=== PATIENT | female | born 1970 | race Caucasian/White ===

== ENCOUNTER → 2020-07-30 18:03 | Outpatient (CLI) | payer OTHER, SELFPAY ==
--- NOTE | ~2020-07-30 | XR_ITS ---
EXAMINATION:XR_[id number]_CR DATE: 07/30/2020 19:00 INDICATION: Neck pain TECHNIQUE: AP, lateral, lateral swimmers and odontoid views of the cervical spine are provided. COMPARISON: 06/19/2009 FINDINGS: There is 1 mm retrolisthesis of C4 on C5 and C5 on C6. The odontoid is intact. No fracture is identified. Vertebral body heights and disk spaces are normal. Prevertebral soft tissues are meghann l. Small degenerative osteophytes project from the anterior endplates of multiple vertebral bodies. M ild multilevel facet and uncovertebral joint osteoarthritis persists without significant change. IMPRESSION: 1. Mild cervical spondylosis without acute findings or significant interval change. Reviewed, dictated and finalized at location A. TRICAL ENGINEERING MANAGER IMPRESSION: 1. Mild cervical spondylosis without acute findings or significant interval justyn nge.
== END ==
PROVIDERS: Visit Provider Nurse Practitioner
DX: M47.892 Other spondylosis, cervical region (principal)
CPT/HCPCS: 72040

== ENCOUNTER → 2022-04-09 17:22 | Outpatient (CLI) | payer OTHER, SELFPAY ==
--- NOTE | ~2022-04-09 | MM_ITS ---
EXAMINATION: MM screening ceci BI w naomi HISTORY: Screening TECHNIQUE: Craniocaudal and mediolateral oblique 3-D tomosynthesis images were obtained and synthetic 2-D images were generated. CAD analysis was submitted and interpreted. COMPARISON: . 08/19/2016 BREAST PARENCHYMAL COMPOSITION: The breasts are heterogeneously dense, which may obscure small masses FINDINGS: There is no evidence of suspicious mass, calcification, or architectural distortion to sugg est malignancy in either breast. There has been no suspicious interval change. IMPRESSION: 1. No mammographic evidence of malignancy. 2. Recommend routine screening mammography in one year. BI-RADS Category 1: Negative Reviewed, dictated and finalized at location A.
== END ==
PROVIDERS: PCP Nurse Practitioner Obstetrics & Gynecology; Visit Provider Nurse Practitioner Obstetrics & Gynecology
DX: Z12.31 Encounter for screening mammogram for malignant neoplasm of breast (principal)
CPT/HCPCS: 77063; 77067

== ENCOUNTER 2022-07-14 09:58 | Outpatient (CLI) | payer OTHER, SELFPAY ==
[2022-07-14 13:07] LABS: Kit Draw Collected
== END 2022-07-14 09:59 | disposition home or self-care (01) ==
LOC: ANHGOSHLAB 10:00
PROVIDERS: PCP Family Medicine; Visit Provider Nurse Practitioner Family
DX: Z00.00 Encounter for general adult medical examination without abnormal findings (principal); E78.5 Hyperlipidemia, unspecified; E11.9 Type 2 diabetes mellitus without complications; F41.9 Anxiety disorder, unspecified; E55.9 Vitamin D deficiency, unspecified
CPT/HCPCS: 36415

== ENCOUNTER 2023-08-17 08:09 | Outpatient (CLI) | payer OTHER, SELFPAY ==
[2023-08-17 19:09] LABS: Basophils Absolute Auto 0.1 K/mm3 (0.0-0.1); Eosinophils Absolute Auto 0.2 K/mm3 (0-0.3); Eosinophils Percent Auto 3.1 % (0-4.4); Hematocrit 42.3 % (37.0-47.0); Hemoglobin 13.7 g/dL (12.0-15.0); Immature Granulocyte Absolute 0.05 K/mm3 (0.00-0.031); Immature Granulocyte Percent A 0.9 % (0-0.5); Lymphocytes Absolute Auto 3.07 K/mm3 (0.9-3.2); Lymphocytes Percent Auto 52.6 % (18.3-44.2); Mean Corpuscular HGB Conc 32.4 g/dl (32-36); Mean Corpuscular Hemoglobin 31.5 pg (26-34); Mean Corpuscular Volume 97.2 fl (80-100); Mean Platelet Volume 9.7 fl (7.4-10.4); Monocytes Absolute Auto 0.3 K/mm3 (0.1-0.6); Monocytes Percent Auto 5.8 % (2.6-8.5); Neutrophils Absolute Auto 2.1 K/mm3 (1.3-6.7); Neutrophils Percent Auto 36.6 % (45.5-73.1); Platelet Count Result 257 k/mm3 (150-375); Red Blood Count 4.35 M/mm3 (4.2-5.4); Red Cell Distribution Width 11.5 % (11.5-14.5); White Blood Count 5.8 K/mm3 (4.5-10.0)
[2023-08-17 19:17] LABS: Alanine Aminotransferase 31 U/L (6-35); Albumin Level 4.1 g/dL (3.5-5.1); Alkaline Phosphatase 113 U/L (38-126); Anion Gap 8 mmol/L (8-16); Aspartate Amino Transferase 30 U/L (14-36); Bilirubin,Total 0.6 mg/dL (0.2-1.3); Blood Urea Nitrogen 13 mg/dL (7-17); Calcium 9.1 mg/dL (8.4-10.2); Carbon Dioxide 26 mmol/L (22-30); Chloride 103 mmol/L (98-107); Cholesterol 322 mg/dL (0-200); Estimated Glomerular Filt Rate > 60; Glucose 264 mg/dL (65-110); HDL Direct 39 mg/dL; Potassium 4.2 mmol/L (3.4-5.0); Sodium 137 mmol/L (137-145); Triglycerides 308 mg/dL (<150)
[2023-08-17 19:28] LABS: LDL Cholesterol Direct 213 mg/dL
[2023-08-17 19:38] LABS: Creatinine Urine 148.5 mg/dL
[2023-08-17 19:40] LABS: MALB Creatinine Ratio 27.1 mg/g (0-30); Microalbumin Urine Random 40.3 mg/L (0-16.7)
[2023-08-17 20:14] LABS: Hemoglobin A1C 9.3 % (<5.7)
[2023-08-20 13:22] LABS: Vitamin D 1,25 (OH)2 Total 36 pg/mL (18-72); Vitamin D2 1,25 (OH)2 <8 pg/mL; Vitamin D3 1,25 (OH)2 36 pg/mL
== END 2023-08-17 08:10 | disposition home or self-care (01) ==
LOC: ANHGOSHLAB 08:11
PROVIDERS: PCP Family Medicine; Visit Provider Nurse Practitioner Family
DX: E11.9 Type 2 diabetes mellitus without complications (principal); I10 Essential (primary) hypertension; E55.9 Vitamin D deficiency, unspecified; Z00.00 Encounter for general adult medical examination without abnormal findings
CPT/HCPCS: 36415; 80053; 80061; 82043; 82652; 83036; 84443; 85025

== ENCOUNTER 2024-08-07 15:27 | Outpatient (CLI) | payer OTHER, SELFPAY ==
--- NOTE | ~2024-08-07 | MM_ITS ---
EXAMINATION: MM screening ceci BI w naomi HISTORY: Screening TECHNIQUE: Craniocaudal and mediolateral oblique 3-D tomosynthesis images were obtained and synthetic 2-D images were generated. CAD analysis was submitted and interpreted. COMPARISON: Comparison to multiple prior studies sequentially, with oldest reviewed study dated 07/23. BREAST PARENCHYMAL COMPOSITION: Not dense: There are scattered areas of fibroglandular density. FINDINGS: There is no evidence of suspicious mass, calcification, or architectural distortion to sugg est malignancy in either breast. There has been no suspicious interval change. IMPRESSION: 1. No mammographic evidence of malignancy. 2. Recommend routine screening mammography in one year. BI-RADS Category 1: Negative Reviewed, dictated and finalized at location B. BACKER
== END 2024-08-07 15:28 | disposition home or self-care (01) ==
LOC: MICIMG 15:28
PROVIDERS: PCP Family Medicine; Visit Provider Student in an Organized Health Care Education/Training Program
DX: Z12.31 Encounter for screening mammogram for malignant neoplasm of breast (principal)
CPT/HCPCS: 77063; 77067

== ENCOUNTER 2024-11-05 20:57 | Observation (INO) | payer OTHER, SELFPAY ==
--- NOTE | ~2024-11-05 | CT_ITS ---
Non-contrast CT scan of the Abdomen and Pelvis Clinical indication: UTI Technique: 2.5 mm axial scans were obtained through the abdomen and pelvis without intravenous or or al contrast. Dose reduction technique was used on this scan by utilizing automated exposure control a nd iterative reconstruction technique. The dose-length product (DLP) was 898.82 mGy-cm. Findings: Images through the lung bases reveal no abnormalities. 3 mm nonobstructing left renal stone present. No other stones identified in either side. No hydroneph rosis. Minimal areas of perinephric stranding present bilaterally, nonspecific. The liver, spleen, pancreas, gallbladder, and adrenals appear normal. There are atherosclerotic calci fications of the aorta. . There is no evidence of bowel obstruction. Images through the pelvis were performed. There is no evidence of ascites or lymphadenopathy. Urinary bladder unremarkable. No pelvic mass seen. No ascites. Impression: 3 mm nonobstructing left renal stone. Minimal bilateral perinephric stranding, nonspecific. Reviewed, dictated and finalized at [facility]. Impression: 3 mm nonobstructing left renal stone. Minimal bilateral perinephric stranding, nonspecific.
[2024-11-05 20:58] VITALS: BP 150/82; PULSE 78; RESP 18; TEMP 36.4; O2SAT 100
--- OUTSIDE RECORDS SUMMARY | 2024-11-05 20:59 | XMS_ITS | Clinical Summary ---
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 Gender Identity Not on file Sexual Orientation Not on file Plan of Treatment Health Maintenance Due Date Last Done Comments Hepatitis C Virus (HCV) Screening 1968 Mammogram 1968 TdaP Immunization 1968 Hepatitis B Immunization (1 of 3 - 19+ 3-dose series) 1987 Pap Smear 1989 Cervical Cancer Screening (CCS) 1998 HPV/Cotest 1998 Colonoscopy 2013 Colorectal Cancer Screening 2013 Cologuard 2018 Immunochemical Fecal Occult Blood 2018 Pneumococcal Immunization (5 0+ years) (1 of 1 - PCV) 2018 Zoster Immunization (1 of 2) 2018 Influenza Immunization (#1) 2024 05/26/2021 SARS-COV-2 Immunization ( - season) 2024 07/07/2021, 11/01/2020, 10/03/2020 Respiratory Syncytial Virus (RSV) Immunization (Adult) (1 - 1-dose 75+ series) 2043 Meningococcal Immunization (ACWY) Aged Out No longer eligible b ased on patient's age to complete this topic Pneumococcal Immunization Combined Aged Out No longer eligible b ased on patient's age to complete this topic Rotavirus Immunization Aged Out No lo nger eligible based on patient's age to complete this topic
--- OUTSIDE RECORDS SUMMARY | 2024-11-05 20:59 | XMS_ITS | Data Portability ---
Author Organization [facility] [place] Address [address] [place] [address] Assessment Encounter Date Assessment Date Assessment LastModified by Organization Details LastModified Time 01/09/2022 01/09/2022 Annual gynecological exam performed. Patient will come back in a year unless there are new symptoms. [email or web address] Not available 01/09/2022 11:14:43 Plan of Treatment Reminders Order Date Submit Date Provider Last Modified By Organization Details Last Modified Time Details Appointments None recorded. Lab None recorded. Referral gastroenter ologist referral - Referring this patient for a Screening Colonoscopy Please contact this patient to schedule an appointment Attached to this referral are the patients demographic s and most recent office visit notes.If you have any questions or require further information , please contact me at [phone].Thank you,Ruby, Referral's 2021 [facility], [address], [id number], [place], [address], 3 05:01:34 Procedures None recorded. Surgeries None recorded. Imaging MAMMO, screening, bilateral 2021 [facility], [address], [place], [address], 2 09:58:50 Medication Orders clobetasol 0.05 % topical cream 2021 [facility] [address] In [facility], [address] , [place], [address], 2 11:23:34 Patient TargetsNo targets recorded. Patient InstructionsNo instructions recorded. 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 Referral for Screening for malignant neoplasm of colon Referring this patient for a Screening ColonoscopyPlease contact this patient to schedule an appointmentAttached to this referral are the patients demographics and most recent office visit notes.If you have any questions or require further information, please contact me at [phone].Thank you,Ruby Referral's Referring Physician: Jennifer Velásquez, RELIEF OPERATOR, Encounter Date: 01/09/2022 Results Created Date Observation Date Name Description Value Unit Range Abnormal Flag Note LastModifiedBy Organization Detail LastModifiedTime 01/12/20 22 01/11/2022 IMAGE GUIDE D PAP AND HPV REGAR DLESS image guided Pap, HPV regardless of Pap result SEE RESULT S BELOW CASE REPOR T: Cytol ogy Gynec ologi kvng Repor t Case: [id number] Aut[address] savage carrasco Provi colleen: Nathan Reid Colle cted: 01/11 0807 PHYSICIST CRYOGENICS Order ing Locat ion: [place] [facility] Recei ryan: 01/12 0105 First Scree n: Lisbet Riojas, CT Rescr een: Ana Maria Elam ret, CT Speci men: Scree roni Pap - Image d, Cervi x STATE MENT OF ADEQU ACY: Satis facto ry for evalu ation Trans forma tion zone compo nent prese nt FINAL DIAGN OSIS: Negat breanna for Intra epith elial Linda leslie or Peter ugalde (NIL) . Elect aung hung gisella d by Ana Maria Elam ret, CT on 2021 at 4:23 PM ----- ----- ----- ----- ----- ----- ----- ----- ----- ----- ----- ----- ----- ----- ----- ----- ----- ---- HPV RESUL TS: HPV mRNA E6/E7 : No HPV mRNA Detec song NOTE: This high risk HPV mRNA assay detec ts fourt een high- risk HPV types (16, 18, 31, 33, 35, 39, 45, 51, 52, 56, 58, 59, 66, 68) witho ut diffe renti ation . COMME NT: Note: This speci men was revie wed by a Cytot echno logis t and/o r Patho logis t (as indic ated in this repor t) after evalu ation using the Thinp rep Imagi ng Syste m. CLINI KVNG INFOR MATIO N: Menst rual Statu s: LMP (if appli cable ): Clini kvng Histo ry/Pr eviou s Pap: Type of Neopl audrey (if appli cable ): Signi fican t Clini kvng Findi ngs: Other Histo ry: Hormo emelyn (if appli cable ): PAP EDUCA VANNESSA L NOTE: The Pap Test is a scree roni test with an inher ent false negat breanna rate. Liqui d-bas ed sampl ing may decre ase, but will not elimi anthony, false negat breanna resul ts. A negat breanna resul t does not precl ude the prese nce and/o r devel opmen t of disea se, since the prese nce of abnor mal cells in the sampl e depen ds on the locat ion of the lesio n and sampl ing techn ique. Donato nued regul ar scree roni is the best metho d of cance r preve ntion . If repor song cytol ogic findi ng do not corre late with physi kvng and/o r histo rical findi ngs, furth er inves tigat ion is recom canelo d, as clini kyle warra nted. Not Available [facility]) [address], [place], [address], 01/15/2022 17:25:49 04/12/20 22 04/09/2022 MAMMO , scree roni, bilat eral No observ ation record ed. [facility] [address], [place], [address], 04/16/2022 13:57:33 Result Notes None recorded. Procedures Surgical History Date Name Laterality Status Provider Name and Address Organization Details Recorded Time Date of Last Pap Smear completed [facility] 01/09/2022 11:16:39 7 section completed [facility] 01/09/2022 12:03:23 3 section completed [facility] 01/09/2022 12:03:12 2 section completed [facility] 01/09/2022 12:03:06 Imaging Results Imaging Date Name Status LastModified by Organiz ation Details LastModified Time 04/09/2022 MAMMO, screening, bilateral completed [facility] [address], [place], [address], 04/16/2022 13:57:33 Procedure Notes None recorded. Medical Equipment None Reported. Allergies No known drug allergies Medications Name Sig Start Date Stop Date Status Note LastModified by Organization Details LastModified Time atorvastati n 40 mg tablet TAKE 1 TABLET BY MOUTH DAILY active Not Available Not Available No t Available clobetasol 0.05 % topical cream APPLY A THIN LAYER TO THE AFFECTED AREA(S) TOPICALLY 2 TIMES PER DAY FOR 7 DAYS NEEDED active Not Available Not Available No t Available metformin 1,000 mg tablet TAKE 1 TABLET BY MOUTH TWICE A DAY active Not Available Not Available No t Available methylpredn isolone 4 mg tablets in a dose pack TAKE 6 TABLETS ON DAY 1 DIRECTED ON PACKAGE AND DECREASE BY 1 TAB EACH DAY FOR A TOTAL OF 6 DAYS 01/09 completed Not Available Not Available Not Available lisinopril 2.5 mg tablet TAKE 1 TABLET BY MOUTH EVERY DAY active Not Available Not Available No t Available escitalopra m 10 mg tablet TAKE 2 TABLETS BY MOUTH DAILY active Not Available Not Available No t Available cyclobenzap rine 5 mg tablet TAKE 1 TABLET BY MOUTH 3 TIMES DAILY NEEDED FOR MUSCLE SPASM active Not Available Not Available No t Available Januvia 50 mg tablet TAKE 1 TABLET BY MOUTH DAILY active Not Available Not Available No t Available Vitals Date Recorded Body height Body mass index (BMI) Body weight Provider Name and Address Organization Details Last Updated DateTime 01/09/2022 165.1 cm 35.8 kg/m2 31442.36 g Carolyn Dozier [facility] 01/09/2022 11:16:04 Date Recorded Systolic blood pressure Diastolic blood pressure Provider Name and Address Organization Details Last Updated DateTime 01/09/2022 122 mm[Hg] 80 mm[Hg] Jennifer Velásquez, [facility]- [address], [place], [address], [facility] 01/09/2022 11:27:37 Social History Question Answer Notes LastModified by Organizat ion Details LastModified Time Tobacco Smoking Status Never Smoker Carolyn Dozier [facility], [facility] 01/09/2022 12:02:35 What Is Your Level Of Alcohol Consumption? Occasional [email or web address] Information not available 01/09/2022 Are You Blind Or Do You Have Difficulty Seeing? No [email or web address] Information n ot available 01/09/2022 What Is Your Level Of Caffeine Consumption? Heavy [email or web address] Information not available 01/09/2022 In The 14 Days Before Symptom Onset, Have You Had Close Contact With A Laboratory-confirm ed COVID-19 While That Case Was Ill? No [email or web address] Information n ot available 01/09/2022 In The 14 Days Before Symptom Onset, Have You Had Close Contact With A Person Who Is Under Investigation For COVID-19 While That Person Was Ill? No [email or web address] Information not available 01/09/2022 Have You Been To An Area Known To Be High Risk For COVID-19? No [email or web address] Information not available 01/09/2022 Are You Deaf Or Do You Have Serious Difficulty Hearing? No Information not available 01/09/2022 What Type Of Diet Are You Following? DIABETIC lyzdptes43 Information n ot available 01/09/2022 Have You Ever Been Counseled For Unhealthy Alcohol Use? No [email or web address] Information not available 01/09/2022 Do You Use Your Seat Belt Or Car Seat Routinely? Yes [email or web address] Information not available 01/09/2022 Do You Have Smoke And Carbon Monoxide Detectors In Your Home? Yes [email or web address] Information not available 01/09/2022 Do You Feel Stressed (tense, Restless, Nervous, Or Anxious, Or Unable To Sleep At Night)? [id number] [email or web address] Information not available 01/09/2022 Do You Use Any Illicit Or Recreational Drugs? No Information not available 01/09/2022 Do You Use Sunscreen Routinely? Yes [email or web address] Information not available 01/09/2022 Has Tobacco Cessation Counseling Been Provided? No lvqvejhp32 Information not available 01/09/2022 Do You Or Have You Ever Used Any Other Forms Of Tobacco Or Nicotine? No grrhdldo24 Information not available 01/09/2022 Sex: Unknown Functional Status Question Answer Note LastModified by Organizat ion Details LastModified Time Do you have difficulty walking or climbing stairs? No [email or web address] Information not available 01/09/2022 Are you able to walk? YESWOREST [email or web address] Information not available 01/09/2022 Are you able to care for yourself? Yes [email or web address] Information not available 01/09/2022 Do you have difficulty dressing or bathing? No [email or web address] Information not available 01/09/2022 What is your exercise level? Occasional ircvauds91 Information not available 01/09/2022 Mental Status None recorded. Family History Relationship Description Onset Age of this Age Resolved Age Notes LastModified by Organization Details LastModified Time Father Heart disease [email or web address] Not available 01/09 11:52:56 Father Diabetes mellitus crztbrra52 Not available 01/09 11:53:53 Father Hypercholest erolemia [email or web address] Not available 01/09 12:01:11 Father Hypertensive disorder [email or web address] Not available 01/09 12:01:59 Paternal Grandfather Heart disease [email or web address] Not available 01/09 11:52:56 Paternal Grandfather Hypercholest erolemia [email or web address] Not available 01/09 12:01:11 Paternal Grandfather Hypertensive disorder [email or web address] Not available 01/09 12:01:59 Paternal Aunt Heart disease [email or web address] Not available 01/09 11:52:56 Paternal Aunt Diabetes mellitus uepdogsy21 Not available 01/09 11:53:53 Paternal Aunt Hypercholest erolemia Not available 01/09 12:01:11 Paternal Aunt Hypertensive disorder [email or web address] Not available 01/09 12:01:59 Paternal Uncle Heart disease [email or web address] Not available 01/09 11:52:56 Paternal Uncle Diabetes mellitus [email or web address] Not available 01/09 11:53:53 Paternal Uncle Hypercholest erolemia [email or web address] Not available 01/09 12:01:11 Paternal Uncle Hypertensive disorder [email or web address] Not available 01/09 12:01:59 Mother Diabetes mellitus [email or web address] Not available 01/09 11:53:53 Maternal Grandmother Diabetes mellitus nxedmoxh14 Not available 01/09 11:53:53 Sister Diabetes mellitus [email or web address] Not available 01/09 11:53:53 Sister Hypertensive disorder [email or web address] Not available 01/09 12:01:59 Maternal Aunt Hypercholest erolemia [email or web address] Not available 01/09 12:01:11 Maternal Aunt Hypertensive disorder [email or web address] Not available 01/09 12:01:59 Maternal Uncle Hypercholest erolemia [email or web address] Not available 01/09 12:01:11 Maternal Uncle Hypertensive disorder [email or web address] Not available 01/09 12:01:59 Medical History Condition Response Allergies (Food, seasonal, environmental ) N Other Y Drug/Latex Allergies/Reactions N Blood Transfusion N Breast Cancer N Dermatologic Disorders N Lung Disease N Defects or Inherited Disease N Breast Problem N Gestational Diabetes N Hematologic disorders N Anesthesia Complications N History of STI N Deep Vein Thrombosis N Polycystic ovary syndrome N Anxiety Disorder N Autoimmune disease N Arthritis N Polyps N Infertility N Acid Reflux (GERD) N History of abnormal pap N Cancer N Varicosities N Stroke N Neurologic/Epilepsy N Endometriosis N High Cholesterol Y Fibromyalgia N Headaches N Kidney Disease N Heart Problems N Thyroid Problems N Kidney or Bladder Problems N GI Problems N Eating Disorder N Anemia N Art (IVF or FET) N Psychiatric Illness N Ovarian Cancer N Diabetes Y Pulmonary (TB, Asthma) N Hepatitis/Liver Disease N No Past Medical History N Eczema N Urinary Tract Infection N Abuse/Domestic Violence N Asthma N Trauma/Violence N Depression/ depression N Heart Disease Y Pre-Eclampsia Y Hypertension Y Osteoporosis N Thrombophilias N Gynecological History Statement/Question Response If Post Menopausal, Age at Menopause 49 Abnormal Pap N Date of Last Mammogram Date of LMP 08/22/2018 STIs/STDs N Date of DEXA bone scan Date of Last Pap Smear 01/09/2022 Current Control Method Menopause LMP Approximate Obstetrics History GPAL:G 3 P 0 2 0 4 Type Value Multiple Births 1 Premature 2 Living 4 Total 3 Past Encounters Encounter ID Performer Location Encounter Start Date Encounter Closed Date Diagnosis/Indication Diagnosis SNOMED-CT Code Diagnosis ICD10 Code Diagnosis Note [id number] Jennifer Velásquez [facility] [address] [address] 01/09/2022 10:44:59 01/09/2022 11:28:53 Gynecologic examination 71538406 Z01.419 Take Calcium with Vitamin D 12-1500mg daily. Do monthly self breast exams. It is advised to get annual flu shot in the fall and she could obtain at [facility] or [facility] care clinic. If you haven't received the Tdap vaccine in the last 10 years you should obtain one as well. Have mammogram yearly, bone density every 2-3 years and colonoscop y every 5-10 years depending on findings and history. Engage in daily exercise of low impact aerobic exercise 45-60 minutes 4-5 times weekly. Avoid tobacco and illicit drugs as well as using moderation with alcohol intake less than 1-2 8 oz beverages daily. This lifestyle behavior pattern will lead to less health conditions and longer life span. If BMI greater than 25 weight watchers or dietary consult advised. Questions have been answered. Patient appears to understand instructio ns, but if you have any further questions call or respond to this email Pap/hpv STD Screen Genetic Screen Colon Screen Dexa Screen Routine Labs Screening mammography 24 257908 Z12.31 Screening for malignant neoplasm of colon [id number] Z12.11 Contact de rmatitis caused by urushiol from [facility] [id number] L25.5 F/U if sx's persist Health Concerns Section Related Observation LastModified by Organization Detai ls LastModified Time None Recorded Concern Status LastModified by Organization Details LastModified Time None Recorded Advance Directives Directive None Recorded Payers Encounter Date Sequence Insurance Name Policy Number Policy Parry Covered Member ID Parry Member ID Guarantor Name 01/09/2022 1 [employer] [id number] Arabella Agrawal [id number] Arabella Keithent Notes Date Note Type Note Provider Name and Address Organization Details Recorded Time 01/09/2022 text/html Annual Weight Tester Post-MenopausalRe ported bypatient.Menopau rivka Symptoms:no menopausal symptoms; normal vaginal lubrication Vaginal Bleeding:history of menopause having occurred; no history of post menopausal bleeding Urinary Symptoms:no hematuria; no incontinence; no nocturia; no urinary frequency Vulva:no genital lesion; no vulvar atrophy Vagina:normal vaginal discharge; no vaginal atrophy Breast:no breast lump; no nipple discharge; no breast pain Sexual Complaints:no sexual complaints Psychological Symptoms:no depression; no anxiety Preventive Measures:encourag e regular mammograms starting age 40; encourage self breast examination; encourage regular exercise; encourage no tobacco use; needs to schedule mammogram; needs to schedule colonoscopy NIALL Rooney- [address], [place], [address], [facility] 01/09/2022 11:27:43 OBGyn Episode Ob Episode Information Episode Created Date Number of Fetuses Patient Bloodtype Patient rh Status Prepregnancy Weight lbs Domestic Partner Domestic Partner Phone Father Name Supervisor Shuttle Preparation Status 01/10/20 22 2 CLOSED Fetus Data First Name Last Name Admitted to NICU Weight (g) Sex Living Outcome Pediatric Complications Fetus ID Race Codes Race Delivery Type 737.087 M Prematur e 76098 Primary 595.112 704 M Prematur e 36883 Primary Jamir Calculation Initial Jamir Date Initial Exam Date Initial Exam Provider Initial Ultrasound Date Last Menstrual Period Date Ultra Sound Weeks Gestation 0 Eighteen To Twenty Week Jamir Update Ultra Sound Date Fundal Height At Umbil Quickening Date Ultra Sound Latest Weeks Gestation Final Jamir Confirmed By Final Jamir Confirmed Date Final Jamir Date Ultra Sound Latest Days Gestation 0 0 Menstrual History Last Menstrual Date Menses Monthly On Bcp Conception Prior Menses Frequency Hcg Plus Date Menarche Onset Age Delivery Information Delivery Date Delivery Type Labor Anesthesia Weeks Gestation Incision Type Labor Labor Length Hrs Delivered By Post Complications Tubal Sterilization Discharge Date Comments 2 24 true preeclam p ty Discharge Information Feeding Method Contraceptive Method Maternal HG B and HCT Levels Ob Episode Information Episode Created Date Number of Fetuses Patient Bloodtype Patient rh Status Prepregnancy Weight lbs Domestic Partner Domestic Partner Phone Father Name Supervisor Shuttle Preparation Status 01/10/20 22 1 CLOSED Fetus Data First Name Last Name Admitted to NICU Weight (g) Sex Living Outcome Pediatric Complications Fetus ID Race Codes Race Delivery Type 2806.37 3704 F Prematur e 55757 Repeat Jamir Calculation Initial Jamir Date Initial Exam Date Initial Exam Provider Initial Ultrasound Date Last Menstrual Period Date Ultra Sound Weeks Gestation 0 Eighteen To Twenty Week Jamir Update Ultra Sound Date Fundal Height At Umbil Quickening Date Ultra Sound Latest Weeks Gestation Final Jamir Confirmed By Final Jamir Confirmed Date Final Jamir Date Ultra Sound Latest Days Gestation 0 0 Menstrual History Last Menstrual Date Menses Monthly On Bcp Conception Prior Menses Frequency Hcg Plus Date Menarche Onset Age Delivery Information Delivery Date Delivery Type Labor Anesthesia Weeks Gestation Incision Type Labor Labor Length Hrs Delivered By Post Complications Tubal Sterilization Discharge Date Comments 7 36 true Discharge Information Feeding Method Contraceptive Method Maternal HG B and HCT Levels Ob Episode Information Episode Created Date Number of Fetuses Patient Bloodtype Patient rh Status Prepregnancy Weight lbs Domestic Partner Domestic Partner Phone Father Name Supervisor Shuttle Preparation Status 01/10/20 22 1 CLOSED Fetus Data First Name Last Name Admitted to NICU Weight (g) Sex Living Outcome Pediatric Complications Fetus ID Race Codes Race Delivery Type 2551.45 5 F Prematur [place] [address]8650 Repeat Jamir Calculation Initial Jamir Date Initial Exam Date Initial Exam Provider Initial Ultrasound Date Last Menstrual Period Date Ultra Sound Weeks Gestation 0 Eighteen To Twenty Week Jamir Update Ultra Sound Date Fundal Height At Umbil Quickening Date Ultra Sound Latest Weeks Gestation Final Jamir Confirmed By Final Jamir Confirmed Date Final Jamir Date Ultra Sound Latest Days Gestation 0 0 Menstrual History Last Menstrual Date Menses Monthly On Bcp Conception Prior Menses Frequency Hcg Plus Date Menarche Onset Age Delivery Information Delivery Date Delivery Type Labor Anesthesia Weeks Gestation Incision Type Labor Labor Length Hrs Delivered By Post Complications Tubal Sterilization Discharge Date Comments 3 36 true Discharge Information Feeding Method Contraceptive Method Maternal HG B and HCT Levels
--- OUTSIDE RECORDS SUMMARY | 2024-11-05 20:59 | XMS_ITS | Referral Summary ---
Author Organization [facility] Address [address] [place] [address] Care Team Providers Care Stock Layer Name Role Phone Unavailable Primary Care Provider Unavailabl e Source Comments [facility],non-owned Affiliates and Associated Physician Practices is amultiple site organization consisting of ambulatory clinics and hospital sitesin [place], [place], [place] and [place]. This disclosure is being madepursuant to the Care Everywhere program and may not contain all information available regarding this patient. Last updated 18.[employer] Social History Tobacco Use Types Packs/Day Years Used Date Smoking Tobacco: Never Assessed Sex and Gender Information Value Date Recorded Sex Assigned at Not on file Gender Identity Not on file Sexual Orientation Not on file Plan of Treatment Not on file
--- OUTSIDE RECORDS SUMMARY | 2024-11-05 20:59 | XMS_ITS | Clinical Summary ---
Author Organization [facility] [employer] Address [address] [place] [address] Care Team Providers Care Leather Seasoner Name Role Phone Unavailable Primary Care Provider Unavailabl e Source Comments [facility] [employer],non-owned Affiliates and Associated Physician Practices is amultiple site organization consisting of ambulatory clinics and hospital sitesin [place] and [place]. This disclosure is being madepursuant to the Care Everywhere program and may not contain all information available regarding this patient. Last updated 18.[facility] [employer] Social History Tobacco Use Types Packs/Day Years Used Date Smoking Tobacco: Never Assessed Sex and Gender Information Value Date Recorded Sex Assigned at Not on file Gender Identity Not on file Sexual Orientation Not on file Plan of Treatment Health Maintenance Due Date Last Done Comments COLOGUARD (AGES 45-75) - COL ON CA SCREENING 1968 COLON MONITORING 1968 COLONOSCOPY - COLON CA SCREENING 1968 CT COLONOGRAPHY - COLON CA SCREENING 1968 Colorectal Cancer Screening 1968 FIT - COLON CA SCREENING 1968 FLEX SIG - COLON CA SCREENING 1968 LIPID TESTING 1968 MAMMOGRAM 1968 PAP SMEAR 1968 HIV SCREENING 1983 HEPATITIS C SCREENING 05/12/1986 DTAP/TDAP/TD VACCINES (1 - Tdap) 1987 HEPATITIS B VACCINE (1 of 3 - 19+ 3-dose series) 1987 PNEUMOCOCCAL VACCINE 50+ (1 of 1 - PCV) 2018 ZOSTER VACCINE (1 of 2) 2018 COVID-19 VACCINE ( - 2023-2 5 season) 2024 INFLUENZA VACCINE (#1) 2024 DEPRESSION SCREENING 08/22/2024 HIB VACCINE Aged Out No longer eligi ble based on patient's age to complete this topic HPV VACCINE Aged Out No longer eligi ble based on patient's age to complete this topic MENINGOCOCCAL (Group B) VACC INE SHARED DECISION-MAKING Aged Out No longer eligibl e based on patient's age to complete this topic MENINGOCOCCAL GROUPS A/C/Y/W VACCINE Aged Out No longer eligible b ased on patient's age to complete this topic PNEUMOCOCCAL VACCINE Aged Out No long er eligible based on patient's age to complete this topic
--- OUTSIDE RECORDS SUMMARY | 2024-11-05 20:59 | XMS_ITS | Patient Health Summary ---
Author Organization [facility] Address [address] [place] [address] Care Team Providers Care Intellectual Property Lawyer Name Role Phone Unavailable Primary Care Provider Unavailabl e Note from [facility],non-owned Affiliates and Associated Physician Practices is amultiple site organization consisting of ambulatory clinics and hospital sitesin [place], [place], [place] and [place]. This disclosure is being madepursuant to the Care Everywhere program and may not contain all information available regarding this patient. Last updated 18.[facility] [employer] Social History Tobacco Use Types Packs/Day Years Used Date Smoking Tobacco: Never Assessed Sex and Gender Information Value Date Recorded Sex Assigned at Not on file Gender Identity Not on file Sexual Orientation Not on file Procedures * GROSS + MICRO EXAM(Performed 02/28/1997) Results * GROSS + MICRO EXAM (02/28/1997 3:53 PM CDT) Result CASE NUMBER [id number] Comment: ORDERING PHYSICIAN ANALY FERNANDEZ SPECIMEN TYPE Placenta Date 03/01/1997 Physician Ronnie Gross Description The placenta is a received in a single container and weighs 570 grams with a single placenta with a single umbilical cord that measures 19 x 15 x up to 2 cm in diameter. The cord measures 16 cm long x 1 cm in diameter and is attached 5.5 cm from the margin of the placenta. The membranes are translucent and slightly opaque in certain areas and attach at the margin of the placenta. The surface has a glistening bluish-wade color with a few small hard yellow nodules under the surface. The largest measures 0.6 x 1.0 cm. There is a blood-filled hematoma at the base of the cord that measures approximately 2.5 x 3 cm. The maternal surface is a soft deep pinkish- wade color with a small amount of adherent clotted blood. On serial sectioning, no areas of fibrosis or infarction are seen. There are a few areas that are a paler pink in color that consists of approximately 10% of the maternal surface. Sections are as follows cassette A, membranes and cord cassettes B and C, surface and placenta cassette D and E, maternal surface and placenta. CC/lmj Microscopic Exam Sections of the placenta show mature villi with occasional intervillous thrombi. The cord has 3 vessels. The membranes are unremarkable. Diagnosis I. Placenta A. Mature placenta, weight 570 grams. B. 3 vessel cord. *Snomed Code 1 B01451 - [id number] Language Teacher bk Pathologist Ludwin Jean M.D. Snomed. 03/04/1997 1542 <1> MISCELLANEOUS SAMPLES / Unknown 02/28/1997 3:53 PM CDT 02/28/1997 3:53 PM CDT Historical Provider LAB - PATHOLOGY/C YTOLOGY ORDERABLES
[2024-11-05 21:04] LABS: Glucose Point of Care 351 mg/dl (65-105)
[2024-11-05 21:43] LABS: Basophils Percent Auto 0.4 % (0.2-1.2); Eosinophils Absolute Auto 0.1 K/mm3 (0-0.3); Eosinophils Percent Auto 1.3 % (0-4.4); Hematocrit 40.7 % (37.0-47.0); Hemoglobin 14.4 g/dL (12.0-15.0); Immature Granulocyte Absolute 0.03 K/mm3 (0.00-0.031); Immature Granulocyte Percent A 0.4 % (0-0.5); Lymphocytes Absolute Auto 3.37 K/mm3 (0.9-3.2); Lymphocytes Percent Auto 47.9 % (18.3-44.2); Mean Corpuscular HGB Conc 35.4 g/dl (32-36); Mean Corpuscular Hemoglobin 32.4 pg (26-34); Mean Corpuscular Volume 91.7 fl (80-100); Mean Platelet Volume 9.4 fl (7.4-10.4); Monocytes Absolute Auto 0.3 K/mm3 (0.1-0.6); Monocytes Percent Auto 4.7 % (2.6-8.5); Neutrophils Absolute Auto 3.2 K/mm3 (1.3-6.7); Neutrophils Percent Auto 45.3 % (45.5-73.1); Platelet Count Result 275 k/mm3 (150-375); Red Blood Count 4.44 M/mm3 (4.2-5.4); Red Cell Distribution Width 11.7 % (11.5-14.5)
[2024-11-05 21:50] LABS: BEDSIDEPREGUCG Negative (Negative)
[2024-11-05 21:54] LABS: Alanine Aminotransferase 32 U/L (6-35); Albumin Level 4.6 g/dL (3.5-5.1); Alkaline Phosphatase 162 U/L (38-126); Anion Gap 12 mmol/L (4-12); Aspartate Amino Transferase 27 U/L (14-36); Bilirubin,Total 0.6 mg/dL (0.2-1.3); Blood Urea Nitrogen 17 mg/dL (7-17); Calcium 9.3 mg/dL (8.4-10.2); Carbon Dioxide 25 mmol/L (22-30); Chloride 96 mmol/L (98-107); Estimated Glomerular Filt Rate > 60; Glucose 372 mg/dL (65-110); Magnesium 1.6 mg/dL (1.6-2.3); Phosphorus 4.1 mg/dL (2.5-4.5); Potassium 3.9 mmol/L (3.4-5.0); Sodium 133 mmol/L (137-145)
[2024-11-05 21:59] LABS: Beta-Hydroxybutyrate/Acetoacetate 0.36 mmol/L (0.02-0.27)
[2024-11-05 22:08] LABS: Add Urine Microscopic? YES; Appearance Urine Turbid (Clear); Bacteria Urine 4+ /hpf; Bilirubin Urine Negative (Negative); Blood Urine Trace (Negative); Color Urine Yellow (Yellow); Glucose Urine UA 3+ mg/dL (Negative); Ketones Urine 1+ mg/dL (Negative); Leukocyte Esterase Ur 1+ LEU/UL (Negative); Need Manual Microscopic Reviewed; Nitrate Urine Positive (Negative); Non Pathogenic Casts 0-2; Protein Urine Negative (Negative); Specific Grav Ur 1.038 (1.001-1.035); Squamous Epithelial Cell Urine Moderate /hpf (Few); Urobilinogen Urine 0.2 mg/dL (<2.0); WBC Urine >100 /hpf (0-3); pH Urine 5.5 (5.0-9.0)
[2024-11-06] VITALS (8 sets, daily range): BP systolic 122–146; BP diastolic 60–86; PULSE 64–83; RESP 14–20; TEMP 36.5–36.9; O2SAT 97–100
--- OUTSIDE RECORDS SUMMARY | 2024-11-06 02:33 | XMS_ITS | Referral Summary ---
Author Organization [facility] Address [address] [place] [address] Care Team Providers Care Counter Top Maker Name Role Phone Unavailable Primary Care Provider Unavailabl e Source Comments [facility],non-owned Affiliates and Associated Physician Practices is amultiple site organization consisting of ambulatory clinics and hospital sitesin [place], [place], [place] and [place]. This disclosure is being madepursuant to the Care Everywhere program and may not contain all information available regarding this patient. Last updated 18.[facility] [employer] Social History Tobacco Use Types Packs/Day Years Used Date Smoking Tobacco: Never Assessed Sex and Gender Information Value Date Recorded Sex Assigned at Not on file Gender Identity Not on file Sexual Orientation Not on file Plan of Treatment Not on file
--- OUTSIDE RECORDS SUMMARY | 2024-11-06 02:33 | XMS_ITS | Clinical Summary ---
Author Organization [facility] [employer] Address [address] [place] [address] Care Team Providers Care Volleyball Player Name Role Phone Unavailable Primary Care Provider Unavailabl e Source Comments [facility] [employer],non-owned Affiliates and Associated Physician Practices is amultiple site organization consisting of ambulatory clinics and hospital sitesin [place], [place] and [place]. This disclosure is being madepursuant to the Care Everywhere program and may not contain all information available regarding this patient. Last updated 18.[facility] [employer] Social History Tobacco Use Types Packs/Day Years [...]
--- OUTSIDE RECORDS SUMMARY | 2024-11-06 02:33 | XMS_ITS | Patient Health Summary ---
Author Organization [facility] Address [address] [place] [address] Care Team Providers Care Dance Coach Name Role Phone Unavailable Primary Care Provider Unavailabl e Note from [facility],non-owned Affiliates and Associated Physician Practices is amultiple site organization consisting of ambulatory clinics and hospital sitesin [place], [place], [place] and [place]. This disclosure is being madepursuant to the Care Everywhere program and may not contain all information available regarding this patient. Last updated 18.[facility] [employer] Social History Tobacco Use Types Packs/Day Years [...] B. 3 vessel cord. *Snomed Code 1 H22780 - [id number] Crop Roller bk Pathologist Ludwin Jean M.D. Snomed. 03/04/1997 1542 <1> MISCELLANEOUS SAMPLES / Unknown 02/28/1997 3:53 PM CDT 02/28/1997 3:53 PM CDT Historical Provider LAB - PATHOLOGY/C YTOLOGY ORDERABLES
--- OUTSIDE RECORDS SUMMARY | 2024-11-06 02:33 | XMS_ITS | Clinical Summary ---
Author Organization [facility] Address [address] [place] [address] Care Team Providers Care Manager Plant Name Role Phone Unavailable Primary Care Provider Unavailabl e Immunizations Immunization Administration Dates Next Due Covid-19, Mrna, Lnp-s, PF, 5 0 mcg/0.25 mL dose (Moderna) 07/07/2021 Social History Tobacco Use Types Packs/Day Years Used Date Smoking Tobacco: Never Assessed Comments Unknown Sex and Gender Information Value Date Recorded Sex Assigned at Not on file Legal Sex Female 3:05 PM RECORD LIBRARIAN Gender Identity Not on file Sexual Orientation [...]
[2024-11-06] MEDS: SODIUM CHLORIDE 0.9% IV 1,000 ML 999 ML IV CONT ×2 (02:47→04:55)
--- NOTE | 2024-11-06 03:17 | ED.GENADULT ---
HPI - General Adult General Chief complaint: Recheck/Abnormal Lab/Rx Stated complaint: high BS, yeast infection and UTI Time Seen by Provider: 11/06/24 01:52 History of Present Illness HPI narrative: Patient 54-year-old female who presents emergency department chief complaint of hyperglycemia and UTI. Patient was sent from a local urgent care for possible DKA the patient has prior history of [id number] diabetes and blood sugars have been running elevated as the patient has been noncompliant with her medications the patient reports that she has had significant dysuria Related Data Allergies Allergy/AdvReac Type Severity Reaction Status Date / Time promethazine (From Phenergan) Allergy Difficulty Verified 02/24/24 07:33 Breathing Review of Systems Review of Systems: A 10 system review of systems was completed on the patient and is negative except for what is stated in the HPI. Nursing and ancillary documentation was reviewed. [facility] Past Medical History Medical History Hypertension Anxiety Other and unspecified hyperlipidemia Diabetes mellitus Surgical History Surgical History History of x3 - 1991, 1992, 1996 Family History Family History Father Family history of elevated blood lipids Cerebrovascular accident Family history of heart disease in male family member before age 55 Mother Family history of elevated blood lipids Other Diabetes mellitus Family history of cardiovascular disease Social History Social History Social History: Caffeine-daily Smoking status: Never smoker Alcohol intake: current Alcohol use details: occasionally Substance use: never Substance use type: does not use Do You Feel Safe in your Home?: Yes Lack of Transportation: No Lack of Food: Never True Current Housing: I Have Housing Concerned About Future Housing: No Difficulty Paying Gas/Electric Bills: No Difficulty Paying for Meds: No Currently Unemployed: No Education: Master's Degree or Higher Difficulty w/ Childcare or Family Care: No Living arrangements: with family Additional living arrangements comments: Occupation/Education: occupation Gender identity (if verbalized by the patient): Female Sexual Orientation (if Verbalized by the Patient): Straight or Heterosexual Exam Narrative: GENERAL: Well-appearing, well-nourished, and in no acute distress. HEAD: Normocephalic, atraumatic. EYES: PERRLA and EOMI. ENT: Nares clear, no rhinorrhea or epistaxis. Mucous membranes moist. NECK: Supple. CHEST: Clear to auscultation. No respiratory distress. HEART: Regular rate and rhythm. No murmur heard. Normal peripheral pulses. ABDOMEN: Soft, nontender, nondistended, normal active bowel sounds. EXTREMITIES: Normal range of motion. No edema. SKIN: Warm, dry, no rash. NEURO: No focal deficits. Alert and oriented x3. PSYCH: Normal mood and affect. Course Vital Signs Vital signs: Vital Signs Temperature 36.4 C 11/05/24 20:58 Pulse Rate 78 11/05/24 20:58 Respiratory Rate 18 11/05/24 20:58 Blood Pressure 150/82 H 11/05/24 20:58 Pulse Oximetry 100 11/05/24 20:58 Oxygen Delivery Room Air 11/05/24 20:58 Temperature 36.4 C 11/05/24 20:58 Pulse Rate 66 11/06/24 04:58 Respiratory Rate 18 11/06/24 04:58 Blood Pressure 141/77 H 11/06/24 04:58 Pulse Oximetry 99 11/06/24 04:58 Oxygen Delivery Room Air 11/05/24 20:58 Medical Decision Making Vital Signs Vital Signs: Vital Signs Temperature 36.4 C 11/05/24 20:58 Pulse Rate 78 11/05/24 20:58 Respiratory Rate 18 11/05/24 20:58 Blood Pressure 150/82 H 11/05/24 20:58 Pulse Oximetry 100 11/05/24 20:58 Oxygen Delivery Room Air 11/05/24 20:58 Temperature 36.4 C 11/05/24 20:58 Pulse Rate 66 11/06/24 04:58 Respiratory Rate 18 11/06/24 04:58 Blood Pressure 141/77 H 11/06/24 04:58 Pulse Oximetry 99 11/06/24 04:58 Oxygen Delivery Room Air 11/05/24 20:58 Lab Data 11/05/24 21:29 11/05/24 21:29 Labs: Lab Results 11/05/24 11/05/24 11/05/24 Range/Units 21:01 21:29 21:35 WBC 7.0 (4.5-10.0) K/mm3 RBC 4.44 (4.2-5.4) M/mm3 Hgb 14.4 (12.0-15.0) g/dL Hct 40.7 (37.0-47.0) % MCV 91.7 (80-100) fl MCH 32.4 (26-34) pg MCHC 35.4 (32-36) g/dl RDW 11.7 (11.5-14.5) % Plt Count 275 (150-375) k/mm3 MPV 9.4 (7.4-10.4) fl Immature Gran % (Auto) 0.4 (0-0.5) % Neut % (Auto) 45.3 L (45.5-73.1) % Lymph % (Auto) 47.9 H (18.3-44.2) % [place] % (Auto) 4.7 (2.6-8.5) % Eos % (Auto) 1.3 (0-4.4) % Baso % (Auto) 0.4 (0.2-1.2) % Lymph # (Auto) 3.37 H (0.9-3.2) K/mm3 [place] # (Auto) 0.3 (0.1-0.6) K/mm3 Eos # (Auto) 0.1 (0-0.3) K/mm3 Baso # (Auto) 0.0 (0.0-0.1) K/mm3 Abs Immat Gran (auto) 0.03 (0.00-0.031) K/mm3 Absolute Neuts (auto) 3.2 (1.3-6.7) K/mm3 Absolute Nucleated RBC 0.000 (0.0-0.012) K/mm3 Nucleated RBC % 0.0 (0.0-0.2) % Sodium 133 L (137-145) mmol/L Potassium 3.9 (3.4-5.0) mmol/L Chloride 96 L (98-107) mmol/L Carbon Dioxide 25 (22-30) mmol/L Anion Gap 12 (4-12) mmol/L BUN 17 (7-17) mg/dL Creatinine 0.75 (0.7-1.0) mg/dL Estim Creat Clear Calc Not Reportable Estimated GFR > 60 (59 - ) Glucose 372 H (65-110) mg/dL POC Capillary Glucose 351 H (65-105) mg/dl Calcium 9.3 (8.4-10.2) mg/dL Phosphorus 4.1 (2.5-4.5) mg/dL Magnesium 1.6 (1.6-2.3) mg/dL Total Bilirubin 0.6 (0.2-1.3) mg/dL AST 27 (14-36) U/L ALT 32 (6-35) U/L Alkaline Phosphatase 162 H (38-126) U/L Total Protein 8.0 (6.3-8.2) g/dL Albumin 4.6 (3.5-5.1) g/dL Beta-Hydroxybutyrate/Acetoacetate 0.36 H (0.02-0.27) mmol/L Urine Color Yellow (Yellow) Urine Appearance Turbid H (Clear) Urine pH 5.5 (5.0-9.0) Ur Specific [place] 1.038 H (1.001-1.035) Urine Protein Negative (Negative) mg/dL Urine Glucose (UA) 3+ H (Negative) mg/dL Urine Ketones 1+ H (Negative) mg/dL Ur Blood (Man) Trace (Negative) Urine Nitrate Positive H (Negative) Urine Bilirubin Negative (Negative) Urine Urobilinogen 0.2 (<2.0) mg/dL Add Ur Microanalysis Reviewed Leukocyte Esterase Rfl 1+ H (Negative) JACK/UL Urine RBC 6-10 H (0-2) /hpf Urine WBC >100 H (0-3) /hpf Ur Squamous Epith Cells Moderate (Few) /hpf Urine Bacteria 4+ H /hpf Urine Casts 0-2 POC Urine HCG, Qual (Negative) 11/05/24 11/06/24 Range/Units 21:48 04:26 WBC (4.5-10.0) K/mm3 RBC (4.2-5.4) M/mm3 Hgb (12.0-15.0) g/dL Hct (37.0-47.0) % MCV (80-100) fl MCH (26-34) pg MCHC (32-36) g/dl RDW (11.5-14.5) % Plt Count (150-375) k/mm3 MPV (7.4-10.4) fl Immature Gran % (Auto) (0-0.5) % Neut % (Auto) (45.5-73.1) % Lymph % (Auto) (18.3-44.2) % [place] % (Auto) (2.6-8.5) % Eos % (Auto) (0-4.4) % Baso % (Auto) (0.2-1.2) % Lymph # (Auto) (0.9-3.2) K/mm3 [place] # (Auto) (0.1-0.6) K/mm3 Eos # (Auto) (0-0.3) K/mm3 Baso # (Auto) (0.0-0.1) K/mm3 Abs Immat Gran (auto) (0.00-0.031) K/mm3 Absolute Neuts (auto) (1.3-6.7) K/mm3 Absolute Nucleated RBC (0.0-0.012) K/mm3 Nucleated RBC % (0.0-0.2) % Sodium (137-145) mmol/L Potassium (3.4-5.0) mmol/L Chloride (98-107) mmol/L Carbon Dioxide (22-30) mmol/L Anion Gap (4-12) mmol/L BUN (7-17) mg/dL Creatinine (0.7-1.0) mg/dL Estim Creat Clear Calc Estimated GFR (59 - ) Glucose (65-110) mg/dL POC Capillary Glucose 306 H (65-105) mg/dl Calcium (8.4-10.2) mg/dL Phosphorus (2.5-4.5) mg/dL Magnesium (1.6-2.3) mg/dL Total Bilirubin (0.2-1.3) mg/dL AST (14-36) U/L ALT (6-35) U/L Alkaline Phosphatase (38-126) U/L Total Protein (6.3-8.2) g/dL Albumin (3.5-5.1) g/dL Beta-Hydroxybutyrate/Acetoacetate (0.02-0.27) mmol/L Urine Color (Yellow) Urine Appearance (Clear) Urine pH (5.0-9.0) Ur Specific [place] (1.001-1.035) Urine Protein (Negative) mg/dL Urine Glucose (UA) (Negative) mg/dL Urine Ketones (Negative) mg/dL Ur Blood (Man) (Negative) Urine Nitrate (Negative) Urine Bilirubin (Negative) Urine Urobilinogen (<2.0) mg/dL Add Ur Microanalysis Leukocyte Esterase Rfl (Negative) JACK/UL Urine RBC (0-2) /hpf Urine WBC (0-3) /hpf Ur Squamous Epith Cells (Few) /hpf Urine Bacteria /hpf Urine Casts POC Urine HCG, Qual Negative (Negative) Discharge Plan Discharge Clinical Impression: UTI (urinary tract infection), Acute hyperglycemia Patient Disposition: Still a Patient Condition: Stable Patient Language: Comoran Prescriptions: No Action (DME) lancets [OneTouch UltraSoft Lancets] Misc See Rx Instructions .ROUTE .MEDSUPPLY Qty: 100 2RF Rx Instructions: Use to check blood sugar 1 time daily (DME) OneTouch Ultra Blue Test Strip Strip See Rx Instructions .ROUTE .MEDSUPPLY Qty: 100 2RF Rx Instructions: Use to check blood sugar 1 time daily escitalopram oxalate 10 mg tablet 10 mg PO DAILY Qty: 90 1RF (DME) FreeStyle Mona 2 [place] Misc See Rx Instructions .Route Qty: 1 0RF Rx Instructions: use As directed (DME) blood-glucose meter [OneTouch Ultra2 Meter] Misc See Rx Instructions .ROUTE .MEDSUPPLY Qty: 1 0RF Rx Instructions: As directed (DME) FreeStyle Mona 2 Sensor Kit See Rx Instructions .Route Qty: 1 2RF Rx Instructions: use As directed Januvia 50 mg tablet 50 mg PO DAILY Qty: 90 1RF metformin 1,000 mg tablet 1,000 mg PO BID Qty: 180 1RF atorvastatin 40 mg tablet 40 mg PO DAILY Qty: 90 1RF escitalopram oxalate 20 mg tablet 20 mg PO DAILY Qty: 90 1RF bupropion HCl [Wellbutrin XL] 150 mg tablet extended release 24 hr 150 mg PO QAM Qty: 90 1RF lisinopril 20 mg tablet 20 mg PO DAILY Qty: 90 1RF Ozempic 0.25 mg or 0.5 mg (2 mg/3 mL) pen injector See Rx Instructions .ROUTE .COMPLEX Qty: 3 0RF Dose Instruction: INJECT 0.5 MG (0.736 ML) SUBCUTANEOUSLY WEEKLY FOR 4 WEEKS Rx Instructions: INJECT 0.5 MG (0.736 ML) SUBCUTANEOUSLY glipizide 10 mg tablet extended release 24hr See Rx Instructions .ROUTE .COMPLEX Qty: 90 0RF Dose Instruction: TAKE 1 TABLET BY MOUTH EVERY DAY Rx Instructions: TAKE 1 TABLET BY MOUTH EVERY DAY Follow-up/Referrals: Chandni Navarro MD [Primary Care Provider] - Time of Disposition: 06:02
[2024-11-06 04:29] LABS: Glucose Point of Care 306 mg/dl (65-105)
[2024-11-06] MEDS: SODIUM CHLORIDE 0.9% IV 1,000 ML 125 ML IV CONT ×3 (06:44→22:45)
[2024-11-06] MEDS: INSULIN HUMAN REGULAR (*BKC) 100 UNITS/ML 6 UNITS SUB-Q (06:45)
[2024-11-06 06:55] LABS: Glucose Point of Care 299 mg/dl (65-105)
[2024-11-06 07:53] LABS: Glucose Point of Care 279 mg/dl (65-105)
--- NOTE | 2024-11-06 08:21 | PM.IMHP ---
H&P: HPI History of Present Illness Date/Time: 11/06/24 08:21 Chief Complaint: High blood sugar, UTI Narrative: Patient is a 54-year-old female with a PMHx of HTN, anxiety, HLD, and Diabetes mellitus who presented to the hospital with hyperglycemia and UTI. She was sent from an urgent care to rule out DKA due to high blood sugar readings and a history of non-insulin dependent diabetes. She states that she has been unable to get her metformin refilled by her PCP and was planning on scheduling an appointment with their office regarding restarting her medications. She now reports significant dysuria and polyuria for the past several days. She also endorses vaginal pruritus for the past 3-4 days. ED labs: WBC 7.0, Hgb 14.4, Hct 40.7, Na 133, K 3.9, Cl 96, Anion Gap 12, GUN 17, Cr 0.75, GFR >60, Glucose 372, A1C 11.7, no other electrolyte abnormalities. UA:Turbid appearance, 3+ Glucose, 1+ Ketones, Positive Nitrates, 1+ Leuk Esterase, 6-10 RBC, >100 WBC, 4+ Bacteria. Abd/Pelvis CT showed 3 mm nonobstructing left renal stone. Minimal bilateral perinephric stranding, nonspecific. She's been started on hyperglycemic protocol and has been initiated back on her regular doses of her at home medications and started on Rocephin for UTI. Review of Systems Review of Systems: All systems reviewed & are unremarkable except as noted in HPI and below PMFSH Past Medical History Medical History Hypertension Anxiety Other and unspecified hyperlipidemia Diabetes mellitus Surgical History Surgical History History of x3 - 1991, 1992, 1996 Family History Family History Father Family history of elevated blood lipids Cerebrovascular accident Family history of heart disease in male family member before age 55 Mother Family history of elevated blood lipids Other Diabetes mellitus Family history of cardiovascular disease Social History Social History Social History: Caffeine-daily Smoking status: Never smoker Alcohol intake: former Alcohol use details: occasionally Substance use: never Substance use type: does not use Do You Feel Safe in your Home?: Yes Lack of Transportation: No Lack of Food: Never True Current Housing: I Have Housing Concerned About Future Housing: No Difficulty Paying Gas/Electric Bills: No Difficulty Paying for Meds: No Currently Unemployed: No Education: Master's Degree or Higher Difficulty w/ Childcare or Family Care: No Living arrangements: with family Additional living arrangements comments: Occupation/Education: occupation Gender identity (if verbalized by the patient): Female Sexual Orientation (if Verbalized by the Patient): Straight or Heterosexual Spiritual care concerns: No Meds Home Medications and Allergies Home Medications ?Medication ?Instructions ?Recorded ?Confirmed ?Type blood-glucose meter (OneTouch #1 ea 08/05/20 11/06/24 Rx Ultra2 Meter) blood sugar diagnostic (OneTouch #100 ea 08/11/20 11/06/24 Rx Ultra Blue Test Strip) lancets (CareSimplyTouch UltraSoft #100 ea 08/11/20 11/06/24 Rx Lancets) escitalopram oxalate 10 mg tablet 10 mg PO DAILY #90 tabs 05/31/22 11/06/24 Rx flash glucose scanning reader #1 ea 07/14/22 11/06/24 Rx (FreeStyle Mona 2 [place]) flash glucose sensor (FreeStyle #1 ea 07/27/22 11/06/24 Rx Mona 2 Sensor kit) sitagliptin phosphate 50 mg tablet 50 mg PO DAILY #90 tabs 08/24/22 11/06/24 Rx (Januvia) metformin 1,000 mg tablet 1,000 mg PO BID #180 tabs 04/12/23 11/06/24 Rx atorvastatin 40 mg tablet 40 mg PO DAILY #90 tabs 10/12/23 11/06/24 Rx semaglutide 0.25 mg or 0.5 mg (2 See Rx Instructions .Route 05/31/24 11/06/24 Rx mg/3 mL) subcutaneous pen injector .COMPLEX #3 mL (Ozempic) glipizide 10 mg tablet, extended See Rx Instructions .Route 10/02/24 11/06/24 Rx release 24 hr .COMPLEX #90 tabs bupropion HCl 150 mg 24 hr tablet, 150 mg PO QAM #90 tabs 11/06/24 11/06/24 Rx extended release (Wellbutrin XL) lisinopril 20 mg tablet 20 mg PO DAILY #90 tabs 11/06/24 11/06/24 Rx Allergies Allergy/AdvReac Type Severity Reaction Status Date / Time promethazine (From Phenergan) Allergy Difficulty Verified 02/24/24 07:33 Breathing Vital Signs Vital Signs - 24 hr 11/05/24 20:58 11/06/24 01:56 11/06/24 01:56 Temperature 97.6 F Pulse Rate 78 69 Respiratory Rate 18 18 18 Blood Pressure 150/82 H 133/76 Pulse Oximetry 100 100 100 Oxygen Delivery Room Air 11/06/24 03:36 11/06/24 04:58 11/06/24 06:49 Temperature Pulse Rate 75 66 83 Respiratory Rate 18 18 18 Blood Pressure 122/60 141/77 H 139/72 Pulse Oximetry 100 99 98 Oxygen Delivery 11/06/24 07:48 Temperature 97.8 F Pulse Rate 64 Respiratory Rate 16 Blood Pressure 144/86 H Pulse Oximetry 99 Oxygen Delivery Exam Narrative: Gen - well appearing female in no acute respiratory distress who is nontoxic-appearing lying semi recumbent in bed HEENT - normocephalic. Atraumatic. Pupils equal round and reactive. Extraocular motions intact. Sclera clear and anicteric. Nares patent. Oropharynx was clear. No oral lesions. Moist mucous membranes. Tongue was midline. Palate carol symmetrically. No facial asymmetry. Neck - neck was supple. No dominant adenopathy, thyromegaly or masses. 2+ carotid upstrokes without bruits. Chest - lungs are clear to auscultation bilaterally. No wheezes or crackles. Breast exam was deferred. CV - heart was regular rate and rhythm. S1-S2. No murmurs gallops or rubs. Abd - abdomen was soft. Nontender. Nondistended. Positive bowel sounds. No organomegaly or masses. Ext - no clubbing, cyanosis or edema. 2+ DP pulses bilaterally. Neuro - patient is alert and oriented x4. Strength is 5/5 in both upper and lower extremities. Cranial nerves 2-12 are intact. Speech is clear. Psych - normal mood and affect. Patient is pleasant and cooperative. Skin - warm and dry. No rashes noted. H&P: Results Labs Labs: Short CBC 11/05/24 Range/Units 21:29 WBC 7.0 (4.5-10.0) K/mm3 Hgb 14.4 (12.0-15.0) g/dL Hct 40.7 (37.0-47.0) % Plt Count 275 (150-375) k/mm3 BMP 11/05/24 21:29 Sodium 133 L Potassium 3.9 Chloride 96 L Carbon Dioxide 25 BUN 17 Creatinine 0.75 Glucose 372 H Calcium 9.3 Liver Function 11/05/24 Range/Units 21:29 Total Bilirubin 0.6 (0.2-1.3) mg/dL AST 27 (14-36) U/L ALT 32 (6-35) U/L Alkaline Phosphatase 162 H (38-126) U/L Albumin 4.6 (3.5-5.1) g/dL Urine 11/05/24 Range/Units 21:35 Urine Color Yellow (Yellow) Urine Appearance Turbid H (Clear) Urine pH 5.5 (5.0-9.0) Ur Specific May 1.038 H (1.001-1.035) Urine Protein Negative (Negative) mg/dL Urine Glucose (UA) 3+ H (Negative) mg/dL Assessment and Plan Assessment and plan (1) Acute hyperglycemia: Code(s): R73.9 - Hyperglycemia, unspecified Status: Acute Assessment and Plan: - In ED: Glucose 372 - Now 279 - (2) UTI (urinary tract infection): Code(s): N39.0 - Urinary tract infection, site not specified Status: Acute Assessment and Plan: - UA:Turbid appearance, 3+ Glucose, 1+ Ketones, Positive Nitrates, 1+ Leuk Esterase, 6-10 RBC, >100 WBC, 4+ Bacteria - UC obtained on 11/06 - No previous micro - started on Rocephin 1gm (3) Type 2 diabetes mellitus: Qualifiers: Diabetes mellitus complication status: without complication Diabetes mellitus penitentiary insulin use: without penitentiary use Qualified Code(s): E11.9 - Type 2 diabetes mellitus without complications Code(s): E11.9 - Type 2 diabetes mellitus without complications Status: Acute Assessment and Plan: - hypoglycemia protocol - POC blood glucose ACHS - home medication - Metformin, glipizide - correct regimen ordered - low dose TIDWM and HS - A1C= 11.7, last reading in 08/13 of 9.3 (4) Yeast infection: Code(s): B37.9 - Candidiasis, unspecified Status: Acute Assessment and Plan: - Reports vaginal pruritus for the past 3-4 days - Diflucan 150mg (5) Hypertension: Qualifiers: Hypertension type: essential hypertension Qualified Code(s): I10 - Essential (primary) hypertension Code(s): I10 - Essential (primary) hypertension Status: Acute Assessment and Plan: Chronic, today 144/86 Quality If No VTE Prophylaxis Answer both mechanical and pharmacologic: Reason no mechanical VTE proph: low risk/not indicated Hospitalist MIPS Advance Care Plan I have confirmed that the patient's Advanced Care Plan is present, code status is documented, or surrogate decision maker is listed in patient medical record.: Yes Medication Reconciliation I have utilized all available resources to obtain, update and review the patients current medications (includes all prescriptions, OTC, herbals, cannabis, and nutritional supplements).: Yes
[2024-11-06] MEDS: INSULIN ASPART (*BKC) 100 UNITS/ML SUB-Q ×4 (08:28→21:02)
--- NOTE | 2024-11-06 09:06 | ADMGEN ---
This patient, Arabella Agrawal, was admitted to [facility] Room 325-01. Patient/family oriented to hospital policies and general routines including ID bracelet, bed and alarms, visiting hours, pain management, procedures, bathroom and other care routines, personal items, smoking policy, room service/diet, and visiting hours. Information on how to activate the Rapid Response Team has been discussed. Patient/Family are encouraged to report perceived risks to care and to ask questions if they do not understand what they are told or what they should do.
[2024-11-06 11:20] LABS: Alanine Aminotransferase 28 U/L (6-35); Albumin Level 3.5 g/dL (3.5-5.1); Alkaline Phosphatase 107 U/L (38-126); Anion Gap 7 mmol/L (4-12); Aspartate Amino Transferase 29 U/L (14-36); Bilirubin,Total 0.5 mg/dL (0.2-1.3); Blood Urea Nitrogen 14 mg/dL (7-17); Calcium 8.4 mg/dL (8.4-10.2); Carbon Dioxide 23 mmol/L (22-30); Chloride 105 mmol/L (98-107); Estimated CRCL calculation 99 ml/min; Estimated Glomerular Filt Rate > 60; Glucose 279 mg/dL (65-110); Potassium 3.9 mmol/L (3.4-5.0); Sodium 135 mmol/L (137-145)
[2024-11-06 11:32] LABS: Basophils Percent Auto 0.6 % (0.2-1.2); Eosinophils Absolute Auto 0.1 K/mm3 (0-0.3); Hematocrit 37.6 % (37.0-47.0); Hemoglobin 12.9 g/dL (12.0-15.0); Immature Granulocyte Absolute 0.01 K/mm3 (0.00-0.031); Immature Granulocyte Percent A 0.2 % (0-0.5); Lymphocytes Absolute Auto 2.41 K/mm3 (0.9-3.2); Mean Corpuscular HGB Conc 34.3 g/dl (32-36); Mean Corpuscular Volume 93.3 fl (80-100); Mean Platelet Volume 9.5 fl (7.4-10.4); Monocytes Absolute Auto 0.3 K/mm3 (0.1-0.6); Monocytes Percent Auto 5.4 % (2.6-8.5); Neutrophils Absolute Auto 2.2 K/mm3 (1.3-6.7); Neutrophils Percent Auto 43.8 % (45.5-73.1); Platelet Count Result 236 k/mm3 (150-375); Red Blood Count 4.03 M/mm3 (4.2-5.4); Red Cell Distribution Width 11.6 % (11.5-14.5)
[2024-11-06 11:36] LABS: Alveolar/Arterial O2 Gradient 24.7 mmHg; Base Excess ABG -0.8 mEq/l (+/-2.0); Fractional Inspired Oxygen 21 %; HCO3 ABG 23.1 mEq/l (22.0-26.0); Oxygen Content ABG 18.1 %vol (16.0-22.0); Oxygen Saturation ABG 96.4 % (95.0-100.0); Oxyhemoglobin 95.2 % THb (90.0-100.0); PCO2 ABG 35.8 mmHg (35.0-45.0); PO2 ABG 82.2 mmHg (80.0-100.0); PO2 FiO2 Ratio Arterial Blood 3.91 %; Total Hemoglobin 13.5 g/dL (12.0-18.0); pH ABG 7.427 (7.350-7.450)
[2024-11-06 11:37] LABS: Modified Allen's Test Pass; Site Drawn RIGHT RADIAL
[2024-11-06 11:38] LABS: Device ROOM AIR
[2024-11-06 11:41] LABS: Glucose Point of Care 275 mg/dl (65-105)
[2024-11-06 13:07] LABS: Hemoglobin A1C 11.7 % (<5.7)
[2024-11-06] MEDS: ESCITALOPRAM OXALATE 10 MG TABLET PO (14:41)
[2024-11-06] MEDS: lisinopriL 20 MG TABLET PO (14:41)
[2024-11-06] MEDS: ATORVASTATIN 40 MG TABLET PO (14:41)
[2024-11-06] MEDS: glipiZIDE 5 MG TABLET 10 MG BY MOUTH (14:41)
[2024-11-06] MEDS: buPROPion HCL XL (24 HR) 150 MG TABCR PO (14:42)
[2024-11-06 16:33] LABS: Glucose Point of Care 298 mg/dl (65-105)
[2024-11-06] MEDS: metFORMIN HCL 500 MG TABLET 1000 MG PO (16:45)
[2024-11-06] MEDS: FLUCONAZOLE 150 MG TABLET PO (16:45)
[2024-11-06 21:21] LABS: Glucose Point of Care 259 mg/dl (65-105)
[2024-11-07 05:40] VITALS: BP 160/85; PULSE 62; RESP 20; TEMP 36.6; O2SAT 98
[2024-11-07 08:00] VITALS: O2SAT 98
[2024-11-07 08:05] LABS: Glucose Point of Care 243 mg/dl (65-105)
[2024-11-07] MEDS: lisinopriL 20 MG TABLET PO (08:43)
[2024-11-07] MEDS: metFORMIN HCL 500 MG TABLET 1000 MG PO (08:43)
[2024-11-07] MEDS: ESCITALOPRAM OXALATE 10 MG TABLET PO (08:43)
[2024-11-07] MEDS: buPROPion HCL XL (24 HR) 150 MG TABCR PO (08:43)
[2024-11-07] MEDS: glipiZIDE 5 MG TABLET 10 MG BY MOUTH (08:43)
[2024-11-07] MEDS: ATORVASTATIN 40 MG TABLET PO (08:43)
[2024-11-07] MEDS: INSULIN ASPART (*BKC) 100 UNITS/ML SUB-Q ×3 (08:44→20:34)
[2024-11-07] MEDS: SODIUM CHLORIDE 0.9% IV 1,000 ML 125 ML IV CONT (08:45)
--- NOTE | 2024-11-07 10:16 | P.PNIM_ITS ---
Progress Note: A&P Assessment and Plan (1) Acute hyperglycemia: Code(s): R73.9 - Hyperglycemia, unspecified Status: Acute Assessment and Plan: - In ED: Glucose 372 A1c 11.7 Hold metformin while in hospital Diabetic diet A.c. HS High-dose SSI and Lantus Recommend following up with an pharmacists (2) UTI (urinary tract infection): Code(s): N39.0 - Urinary tract infection, site not specified Status: Acute Assessment and Plan: - UA:Turbid appearance, 3+ Glucose, 1+ Ketones, Positive Nitrates, 1+ Leuk Esterase, 6-10 RBC, >100 WBC, 4+ Bacteria - UC 11/06 pending - IV Rocephin (3) Type 2 diabetes mellitus: Qualifiers: Diabetes mellitus complication status: without complication Diabetes mellitus correction insulin use: without intermodal dispatcher use Qualified Code(s): E11.9 - Type 2 diabetes mellitus without complications Code(s): E11.9 - Type 2 diabetes mellitus without complications Status: Acute Assessment and Plan: - hypoglycemia protocol - POC blood glucose ACHS -hold home medication - Metformin -SSI Lantus - A1C= 11.7 (4) Yeast infection: Code(s): B37.9 - Candidiasis, unspecified Status: Acute Assessment and Plan: - Reports vaginal pruritus for the past 3-4 days - Diflucan 150mg (5) Hypertension: Qualifiers: Hypertension type: essential hypertension Qualified Code(s): I10 - Essential (primary) hypertension Code(s): I10 - Essential (primary) hypertension Status: Acute Assessment and Plan: Chronic, Continue home lisinopril Time Spent With Patient Time with patient: 25 - 35 minutes Subjective Date/time seen: 11/07/24 10:16 Interval history: 54-year-old female with a PMHx of HTN, anxiety, HLD, and Diabetes mellitus who presented to the hospital with hyperglycemia and UTI. Patient states that she has started to feel better. Denies dysuria. Review of Systems Review of Systems: All systems reviewed & are unremarkable except as noted in HPI and below Exam Narrative: Gen - well appearing female in no acute respiratory distress who is nontoxic- appearing lying semi recumbent in bed HEENT - normocephalic. Atraumatic. Pupils equal round and reactive. Extraocular motions intact. Sclera clear and anicteric. Nares patent. Oropharynx was clear. No oral lesions. Moist mucous membranes. Tongue was midline. Palate carol symmetrically. No facial asymmetry. Neck - neck was supple. No dominant adenopathy, thyromegaly or masses. 2+ carotid upstrokes without bruits. Chest - lungs are clear to auscultation bilaterally. No wheezes or crackles. Breast exam was deferred. CV - heart was regular rate and rhythm. S1-S2. No murmurs gallops or rubs. Abd - abdomen was soft. Nontender. Nondistended. Positive bowel sounds. No organomegaly or masses. Ext - no clubbing, cyanosis or edema. 2+ DP pulses bilaterally. Neuro - patient is alert and oriented x4. Strength is 5/5 in both upper and lower extremities. Cranial nerves 2-12 are intact. Speech is clear. Psych - normal mood and affect. Patient is pleasant and cooperative. Skin - warm and dry. No rashes noted. Objective Data Vital Signs Vital Signs: Vital Signs - 24 hr 11/06/24 14:00 11/06/24 21:21 11/07/24 05:40 Temperature 98.4 F 97.7 F 97.8 F Pulse Rate 81 76 62 Respiratory Rate 14 20 20 Blood Pressure 146/81 H 124/65 160/85 H Pulse Oximetry 97 99 98 Intake/Output Intake/Output: Intake & Output 11/04/24 11/05/24 11/06/24 11/07/24 23:59 23:59 23:59 23:59 Intake Total 5195.8 2790 Balance 5195.8 2790 Meds/Results Medications: Active Medications Generic Name Dose Route Start Last Admin Trade Name Freq PRN Reason Stop Dose Admin Atorvastatin Calcium 40 mg 11/06/24 13:20 11/07/24 08:43 Atorvastatin 40 Mg Tablet PO 40 mg DAILY NORM Administration Bupropion HCl 150 mg 11/06/24 13:20 11/07/24 08:43 Bupropion Hcl Xl (24 Hr) 150 Mg Tabcr PO 150 mg QAM NORM Administration Dextrose 12.5 gm 11/06/24 05:57 Dextrose 50% 25 Gm/50 Ml Syringe IV PUSH PRN PRN Hypoglycemia Protocol Escitalopram Oxalate 10 mg 11/06/24 13:20 11/07/24 08:43 Escitalopram Oxalate 10 Mg Tablet PO 10 mg DAILY NORM Administration Glipizide 10 mg 11/06/24 13:20 11/07/24 08:43 Glipizide 5 Mg Tablet BY MOUTH 10 mg DAILY NORM Administration Glucagon 1 mg 11/06/24 05:57 Glucagon For Inj 1 Mg Vial IM PRN PRN Hypoglycemia Protocol Glucose 15 gm 11/06/24 05:57 Glucose Oral Gel 15 Gm Of Glucse In 37.5 Gm Tube PO PRN PRN Hypoglycemia Protocol Ceftriaxone Sodium 1 gm in 50 mls @ 100 mls/hr 11/07/24 05:00 11/07/24 05:03 Rocephin 1 Gm/Ns 50 Ml IVPB 100 mls/hr Q24H NORM Administration Sodium Chloride 1,000 mls @ 125 mls/hr 11/06/24 06:00 11/07/24 08:45 Normal Saline Iv IV CONT 125 mls/hr .Q8H NORM Administration Dextrose 1,000 mls @ 100 mls/hr 11/06/24 05:57 Dextrose 5% 1,000 Ml IVPB PRN PRN Hypoglycemia Protocol Insulin Aspart 3 - 6 units 11/06/24 08:00 11/07/24 08:44 Insulin Aspart (*Bkc) 100 Units/Ml SUB-Q 3 units TIDWM NORM Administration Protocol Insulin Aspart 1 - 3 units 11/06/24 21:00 11/06/24 21:02 Insulin Aspart (*Bkc) 100 Units/Ml SUB-Q 2 units HS NORM Administration Protocol Lisinopril 20 mg 11/06/24 13:20 11/07/24 08:43 Lisinopril 20 Mg Tablet PO 20 mg DAILY NORM Administration Metformin HCl 1,000 mg 11/06/24 17:00 11/07/24 08:43 Metformin Hcl 500 Mg Tablet PO 1,000 mg BIDWM NORM Administration Radiology Results: ITS Impressions Abdomen/Pelvis CT 11/06/24 06:07 Impression: 3 mm nonobstructing left renal stone. Minimal bilateral perinephric stranding, nonspecific. Labs Labs: Laboratory Results - last 24 hr 11/06/24 11/06/24 11/06/24 10:48 10:53 11:31 WBC 5.0 RBC 4.03 L Hgb 12.9 Hct 37.6 MCV 93.3 MCH 32.0 MCHC 34.3 RDW 11.6 Plt Count 236 MPV 9.5 Immature Gran % (Auto) 0.2 Neut % (Auto) 43.8 L Lymph % (Auto) 48.0 H [place] % (Auto) 5.4 Eos % (Auto) 2.0 Baso % (Auto) 0.6 Lymph # (Auto) 2.41 [place] # (Auto) 0.3 Eos # (Auto) 0.1 Baso # (Auto) 0.0 Abs Immat Gran (auto) 0.01 Absolute Neuts (auto) 2.2 Absolute Nucleated RBC 0.000 Nucleated RBC % 0.0 Puncture Site Right radial ABG pH 7.427 ABG pCO2 35.8 ABG pO2 82.2 ABG PO2/FiO2 Ratio 3.91 ABG HCO3 23.1 ABG O2 Saturation 96.4 ABG O2 Content 18.1 ABG Base Excess -0.8 A-a Gradient 24.7 Oxyhemoglobin 95.2 Total Hemoglobin 13.5 O2 Delivery Device Room air O2 Liters/Min Not Reportable FiO2 21 Sodium 135 L Potassium 3.9 Chloride 105 Carbon Dioxide 23 Anion Gap 7 BUN 14 Creatinine 0.56 L Estim Creat Clear Calc 99 Estimated GFR > 60 Glucose 279 H POC Capillary Glucose Hemoglobin A1c 11.7 H Calcium 8.4 Total Bilirubin 0.5 AST 29 ALT 28 Alkaline Phosphatase 107 Total Protein 6.0 L Albumin 3.5 11/06/24 11/06/24 11/06/24 11:39 16:28 19:33 WBC RBC Hgb Hct MCV MCH MCHC RDW Plt Count MPV Immature Gran % (Auto) Neut % (Auto) Lymph % (Auto) [place] % (Auto) Eos % (Auto) Baso % (Auto) Lymph # (Auto) [place] # (Auto) Eos # (Auto) Baso # (Auto) Abs Immat Gran (auto) Absolute Neuts (auto) Absolute Nucleated RBC Nucleated RBC % Puncture Site ABG pH ABG pCO2 ABG pO2 ABG PO2/FiO2 Ratio ABG HCO3 ABG O2 Saturation ABG O2 Content ABG Base Excess A-a Gradient Oxyhemoglobin Total Hemoglobin O2 Delivery Device O2 Liters/Min FiO2 Sodium Potassium Chloride Carbon Dioxide Anion Gap BUN Creatinine Estim Creat Clear Calc Estimated GFR Glucose POC Capillary Glucose 275 H 298 H 259 H Hemoglobin A1c Calcium Total Bilirubin AST ALT Alkaline Phosphatase Total Protein Albumin 11/07/24 08:03 WBC RBC Hgb Hct MCV MCH MCHC RDW Plt Count MPV Immature Gran % (Auto) Neut % (Auto) Lymph % (Auto) [place] % (Auto) Eos % (Auto) Baso % (Auto) Lymph # (Auto) [place] # (Auto) Eos # (Auto) Baso # (Auto) Abs Immat Gran (auto) Absolute Neuts (auto) Absolute Nucleated RBC Nucleated RBC % Puncture Site ABG pH ABG pCO2 ABG pO2 ABG PO2/FiO2 Ratio ABG HCO3 ABG O2 Saturation ABG O2 Content ABG Base Excess A-a Gradient Oxyhemoglobin Total Hemoglobin O2 Delivery Device O2 Liters/Min FiO2 Sodium Potassium Chloride Carbon Dioxide Anion Gap BUN Creatinine Estim Creat Clear Calc Estimated GFR Glucose POC Capillary Glucose 243 H Hemoglobin A1c Calcium Total Bilirubin AST ALT Alkaline Phosphatase Total Protein Albumin
[2024-11-07 10:19] LABS: Basophils Percent Auto 0.5 % (0.2-1.2); Eosinophils Absolute Auto 0.1 K/mm3 (0-0.3); Eosinophils Percent Auto 1.7 % (0-4.4); Hematocrit 41.5 % (37.0-47.0); Hemoglobin 13.9 g/dL (12.0-15.0); Immature Granulocyte Absolute 0.03 K/mm3 (0.00-0.031); Immature Granulocyte Percent A 0.5 % (0-0.5); Lymphocytes Absolute Auto 2.32 K/mm3 (0.9-3.2); Lymphocytes Percent Auto 35.2 % (18.3-44.2); Mean Corpuscular HGB Conc 33.5 g/dl (32-36); Mean Corpuscular Volume 95.4 fl (80-100); Mean Platelet Volume 9.3 fl (7.4-10.4); Monocytes Absolute Auto 0.3 K/mm3 (0.1-0.6); Monocytes Percent Auto 4.4 % (2.6-8.5); Neutrophils Absolute Auto 3.8 K/mm3 (1.3-6.7); Neutrophils Percent Auto 57.7 % (45.5-73.1); Platelet Count Result 230 k/mm3 (150-375); Red Blood Count 4.35 M/mm3 (4.2-5.4); Red Cell Distribution Width 11.6 % (11.5-14.5); White Blood Count 6.6 K/mm3 (4.5-10.0)
[2024-11-07 10:36] LABS: Alanine Aminotransferase 30 U/L (6-35); Albumin Level 3.7 g/dL (3.5-5.1); Alkaline Phosphatase 98 U/L (38-126); Anion Gap 9 mmol/L (4-12); Aspartate Amino Transferase 26 U/L (14-36); Bilirubin,Total 0.6 mg/dL (0.2-1.3); Blood Urea Nitrogen 10 mg/dL (7-17); Calcium 8.7 mg/dL (8.4-10.2); Carbon Dioxide 21 mmol/L (22-30); Chloride 105 mmol/L (98-107); Estimated CRCL calculation 100 ml/min; Estimated Glomerular Filt Rate > 60; Glucose 273 mg/dL (65-110); Potassium 4.1 mmol/L (3.4-5.0); Sodium 135 mmol/L (137-145)
[2024-11-07 11:36] LABS: Glucose Point of Care 219 mg/dl (65-105)
[2024-11-07 13:45] VITALS: BP 139/79; PULSE 75; RESP 20; TEMP 36.8; O2SAT 97
[2024-11-07 16:31] LABS: Glucose Point of Care 163 mg/dl (65-105)
[2024-11-07 20:00] VITALS: PULSE 75; RESP 20; O2SAT 97
[2024-11-07] MEDS: INSULIN GLARGINE (*BKC) 100 UNITS/ML 12 UNITS SUB-Q (20:34)
[2024-11-07 21:24] LABS: Glucose Point of Care 281 mg/dl (65-105)
[2024-11-07 21:39] VITALS: BP 142/73; PULSE 62; RESP 16; TEMP 37.1; O2SAT 100
[2024-11-08 04:45] VITALS: BP 121/65; PULSE 61; RESP 16; TEMP 36.6; O2SAT 99
[2024-11-08 06:56] LABS: Basophils Percent Auto 0.6 % (0.2-1.2); Eosinophils Absolute Auto 0.1 K/mm3 (0-0.3); Eosinophils Percent Auto 1.7 % (0-4.4); Hematocrit 36.8 % (37.0-47.0); Hemoglobin 12.4 g/dL (12.0-15.0); Immature Granulocyte Absolute 0.01 K/mm3 (0.00-0.031); Immature Granulocyte Percent A 0.2 % (0-0.5); Lymphocytes Absolute Auto 2.68 K/mm3 (0.9-3.2); Mean Corpuscular HGB Conc 33.7 g/dl (32-36); Mean Corpuscular Hemoglobin 31.6 pg (26-34); Mean Corpuscular Volume 93.6 fl (80-100); Mean Platelet Volume 9.3 fl (7.4-10.4); Monocytes Absolute Auto 0.3 K/mm3 (0.1-0.6); Monocytes Percent Auto 5.4 % (2.6-8.5); Neutrophils Absolute Auto 2.1 K/mm3 (1.3-6.7); Neutrophils Percent Auto 40.1 % (45.5-73.1); Platelet Count Result 203 k/mm3 (150-375); Red Blood Count 3.93 M/mm3 (4.2-5.4); Red Cell Distribution Width 11.7 % (11.5-14.5); White Blood Count 5.2 K/mm3 (4.5-10.0)
[2024-11-08 07:07] LABS: Alanine Aminotransferase 27 U/L (6-35); Albumin Level 3.4 g/dL (3.5-5.1); Alkaline Phosphatase 87 U/L (38-126); Anion Gap 8 mmol/L (4-12); Aspartate Amino Transferase 22 U/L (14-36); Bilirubin,Total 0.4 mg/dL (0.2-1.3); Blood Urea Nitrogen 8 mg/dL (7-17); Calcium 8.7 mg/dL (8.4-10.2); Carbon Dioxide 22 mmol/L (22-30); Chloride 106 mmol/L (98-107); Estimated CRCL calculation 109 ml/min; Estimated Glomerular Filt Rate > 60; Glucose 212 mg/dL (65-110); Potassium 3.8 mmol/L (3.4-5.0); Sodium 136 mmol/L (137-145)
[2024-11-08 07:59] LABS: Glucose Point of Care 214 mg/dl (65-105)
--- NOTE | 2024-11-08 08:54 | P.DS_ITS ---
DS: Admitting Diagnosis Discharge Date 11/08/2024 Admitting Diagnosis UTI and hyperglycemia DS: Discharge Diagnosis Discharge Diagnosis (1) UTI (urinary tract infection): Code(s): N39.0 - Urinary tract infection, site not specified Status: Acute Assessment and Plan: - UA:Turbid appearance, 3+ Glucose, 1+ Ketones, Positive Nitrates, 1+ Leuk Esterase, 6-10 RBC, >100 WBC, 4+ Bacteria - UC 11/06 E coli - IV Rocephin transition to Macrobid x5 days (2) Acute hyperglycemia: Code(s): R73.9 - Hyperglycemia, unspecified Status: Acute Assessment and Plan: - In ED: Glucose 372 A1c 11.7 Hold metformin while in hospital Diabetic diet A.c. HS High-dose SSI and Lantus Recommend following up with an supervisor shaving and splitting (3) Type 2 diabetes mellitus: Qualifiers: Diabetes mellitus complication status: without complication Diabetes mellitus mcc insulin use: without longwall shearer operator use Qualified Code(s): E11.9 - Type 2 diabetes mellitus without complications Code(s): E11.9 - Type 2 diabetes mellitus without complications Status: Acute Assessment and Plan: - hypoglycemia protocol - POC blood glucose ACHS -hold home medication - Metformin -SSI Lantus - A1C= 11.7 (4) Yeast infection: Code(s): B37.9 - Candidiasis, unspecified Status: Acute Assessment and Plan: - Reports vaginal pruritus for the past 3-4 days - Diflucan 150mg (5) Hypertension: Qualifiers: Hypertension type: essential hypertension Qualified Code(s): I10 - Essential (primary) hypertension Code(s): I10 - Essential (primary) hypertension Status: Acute Assessment and Plan: Chronic, Continue home lisinopril DS: Summary Hospital Course Reason for hospitalization: UTI Hospital Course: 54-year-old female with past medical history of anxiety, hyperlipidemia and diabetes mellitus presents the hospital for hyperglycemia and burning with urination. She originally went to Urgent Care which referred her to the emergency room for evaluation of DKA. She states that she was unable to get an appointment for PCP to get her medications refilled. She is supposed to on metformin, and Ozempic. She states that over the last 2 days she has had polyuria, polydipsia and polyphagia with bladder fullness and burning upon urination. Patient's UA was positive for nitrates and 1+ leukocyte esterase she was started on IV Rocephin. She received 3 doses of IV Rocephin and was transitioned to Macrobid x5 days. Her urine culture came back positive for E coli and is sensitive to Macrobid. Patient's hemoglobin A1c was 11.7. She was counseled on diet and medication compliance. She was sent home with 30 day supply of all her medications. Recommendations follow-up with her PCP and a supervisor shaving and splitting outpatient. Patient is stable for discharge. Status at Discharge Functional status at discharge: independent ambulation Time Spent with Patient Time attestation: Total time spent providing and/or coordinating discharge services: Time spent: Greater than 30 minutes Exam Narrative: Gen - well appearing female in no acute respiratory distress who is nontoxic-appearing lying semi recumbent in bed HEENT - normocephalic. Atraumatic. Pupils equal round and reactive. Extraocular motions intact. Sclera clear and anicteric. Nares patent. Oropharynx was clear. No oral lesions. Moist mucous membranes. Tongue was midline. Palate carol symmetrically. No facial asymmetry. Neck - neck was supple. No dominant adenopathy, thyromegaly or masses. 2+ carotid upstrokes without bruits. Chest - lungs are clear to auscultation bilaterally. No wheezes or crackles. Breast exam was deferred. CV - heart was regular rate and rhythm. S1-S2. No murmurs gallops or rubs. Abd - abdomen was soft. Nontender. Nondistended. Positive bowel sounds. No organomegaly or masses. Ext - no clubbing, cyanosis or edema. 2+ DP pulses bilaterally. Neuro - patient is alert and oriented x4. Strength is 5/5 in both upper and lower extremities. Cranial nerves 2-12 are intact. Speech is clear. Psych - normal mood and affect. Patient is pleasant and cooperative. Skin - warm and dry. No rashes noted. DS: Data Data Completed and Pending Labs on day of discharge: Labs from last 24 hours 11/08/24 11/08/24 11/07/24 07:53 06:48 20:12 WBC 5.2 RBC 3.93 L Hgb 12.4 Hct 36.8 L MCV 93.6 MCH 31.6 MCHC 33.7 RDW 11.7 Plt Count 203 MPV 9.3 Immature Gran % (Auto) 0.2 Neut % (Auto) 40.1 L Lymph % (Auto) 52.0 H [place] % (Auto) 5.4 Eos % (Auto) 1.7 Baso % (Auto) 0.6 Lymph # (Auto) 2.68 [place] # (Auto) 0.3 Eos # (Auto) 0.1 Baso # (Auto) 0.0 Abs Immat Gran (auto) 0.01 Absolute Neuts (auto) 2.1 Absolute Nucleated RBC 0.000 Nucleated RBC % 0.0 Sodium 136 L Potassium 3.8 Chloride 106 Carbon Dioxide 22 Anion Gap 8 BUN 8 Creatinine 0.50 L Estim Creat Clear Calc 109 Estimated GFR > 60 Glucose 212 H POC Capillary Glucose 214 H 281 H Calcium 8.7 Total Bilirubin 0.4 AST 22 ALT 27 Alkaline Phosphatase 87 Total Protein 6.0 L Albumin 3.4 L 11/07/24 11/07/24 11/07/24 16:19 11:34 10:10 WBC 6.6 RBC 4.35 Hgb 13.9 Hct 41.5 MCV 95.4 MCH 32.0 MCHC 33.5 RDW 11.6 Plt Count 230 MPV 9.3 Immature Gran % (Auto) 0.5 Neut % (Auto) 57.7 Lymph % (Auto) 35.2 [place] % (Auto) 4.4 Eos % (Auto) 1.7 Baso % (Auto) 0.5 Lymph # (Auto) 2.32 [place] # (Auto) 0.3 Eos # (Auto) 0.1 Baso # (Auto) 0.0 Abs Immat Gran (auto) 0.03 Absolute Neuts (auto) 3.8 Absolute Nucleated RBC 0.000 Nucleated RBC % 0.0 Sodium 135 L Potassium 4.1 Chloride 105 Carbon Dioxide 21 L Anion Gap 9 BUN 10 Creatinine 0.55 L Estim Creat Clear Calc 100 Estimated GFR > 60 Glucose 273 H POC Capillary Glucose 163 H 219 H Calcium 8.7 Total Bilirubin 0.6 AST 26 ALT 30 Alkaline Phosphatase 98 Total Protein 7.0 Albumin 3.7 Preliminary micro results at discharge 11/05/24 21:35 Urine Culture - Preliminary Clean Catch Midstream Escherichia Coli Discharge Plan Discharge Consulting providers: Nigel Lenz; Patti Casey; Thomas Vera Discharging Clinician: Patti Casey Anticipated Discharge Date/Time: 11/08/24 09:12 Patient Disposition: Home, Self-Care Activity: may shower Diet: diabetic Discharge Instructions: Discharge instructions: Take medications as prescribed New medications prescribed: Macrobid x5 days A 30 day prescription of your home meds have been given to you You are activity as tolerated Monitor blood pressures Avoid social areas, you wear a mask when in social settings Encouraged to continue with yearly vaccinations Return to the emergency department if he developed sudden shortness of breath, chest pain, nausea, vomiting, upset stomach or intractable diarrhea Return to the emergency department if you develop fever greater than 101.5 Follow-up with: Your primary care physician within 1-2 weeks for post hospitalization check up You should follow-up with the supervisor shaving and splitting and have your A1c checked in 3 months Thank you for [facility] for your healthcare needs Patient Instructions: Antibiotic Form, Diabetic Hyperglycemia (DC) Patient Language: Chinese Stand Alone Forms: General Discharge Information Follow-up/Referrals: Other [Other] - 6 Weeks Chandni Navarro MD [Primary Care Provider] - 2 Weeks Discharge Medications: New atorvastatin 40 mg Tablet 40 mg PO DAILY 30 Days Qty: 30 0RF lisinopril 20 mg Tablet 20 mg PO DAILY Qty: 30 0RF glipizide 5 mg Tablet 10 mg BYMOUTH DAILY 30 Days Qty: 60 0RF escitalopram oxalate 10 mg Tablet 10 mg PO DAILY 30 Days Qty: 30 0RF bupropion HCl 150 mg Tablet Extended Release 24 Hr 150 mg PO QAM 30 Days Qty: 30 0RF Ozempic 0.25 mg or 0.5 mg (2 mg/3 mL) pen injector 0.5 mg subcut WEEKLY Qty: 3 0RF metformin 1,000 mg tablet 1,000 mg PO BID 30 Days Qty: 60 0RF Januvia 50 mg tablet 50 mg PO DAILY 30 Days Qty: 30 0RF nitrofurantoin monohyd/m-cryst [Macrobid] 100 mg capsule 100 mg PO Q12H 5 Days Qty: 10 0RF Rx Instructions: must administer with a meal/food Continued (DME) lancets [OneTouch UltraSoft Lancets] [facility] See Rx Instructions .ROUTE .MEDSUPPLY Qty: 100 2RF Rx Instructions: Use to check blood sugar 1 time daily (DME) OneTouch Ultra Blue Test Strip Strip See Rx Instructions .ROUTE .MEDSUPPLY Qty: 100 2RF Rx Instructions: Use to check blood sugar 1 time daily (DME) FreeStyle Mona 2 [place] [facility] See Rx Instructions .Route Qty: 1 0RF Rx Instructions: use As directed (DME) blood-glucose meter [OneTouch Ultra2 Meter] [facility] See Rx Instructions .ROUTE .MEDSUPPLY Qty: 1 0RF Rx Instructions: As directed (DME) FreeStyle Mona 2 Sensor Kit See Rx Instructions .Route Qty: 1 2RF Rx Instructions: use As directed Discontinued escitalopram oxalate 10 mg tablet 10 mg PO DAILY Qty: 90 1RF Januvia 50 mg tablet 50 mg PO DAILY Qty: 90 1RF metformin 1,000 mg tablet 1,000 mg PO BID Qty: 180 1RF atorvastatin 40 mg tablet 40 mg PO DAILY Qty: 90 1RF Ozempic 0.25 mg or 0.5 mg (2 mg/3 mL) pen injector See Rx Instructions .ROUTE .COMPLEX Qty: 3 0RF Dose Instruction: INJECT 0.5 MG (0.736 ML) SUBCUTANEOUSLY WEEKLY FOR 4 WEEKS Rx Instructions: INJECT 0.5 MG (0.736 ML) SUBCUTANEOUSLY glipizide 10 mg tablet extended release 24hr See Rx Instructions .ROUTE .COMPLEX Qty: 90 0RF Dose Instruction: TAKE 1 TABLET BY MOUTH EVERY DAY Rx Instructions: TAKE 1 TABLET BY MOUTH EVERY DAY lisinopril 20 mg tablet 20 mg PO DAILY Qty: 90 0RF Rx Instructions: NEEDS APPOINTMENT FOR FURTHER REFILLS bupropion HCl [Wellbutrin XL] 150 mg tablet extended release 24 hr 150 mg PO QAM Qty: 90 0RF Rx Instructions: NEEDS APPOINTMENT FOR FURHTER REFILLS Date of admission: 11/06/24 05:57 Primary Care Provider: Chandni Navarro Admitting Provider: Chloe Barber Attending physician on admission: Chloe Barber Condition: Stable Quality VTE Prophylaxis VTE prophylaxis: mechanical ordered Hospitalist MIPS Heart Failure (Exclusion) Patient has history of Heart Transplant or Left Ventricular Assistive Device?: No IF YES, STOP HERE Heart Failure (Qualifier) Patient has current or prior documentation of LVEF less than or equal to 40%, or mod/servere depressed LVSF?: No IF NO, STOP HERE
[2024-11-08] MEDS: ATORVASTATIN 40 MG TABLET PO (09:27)
[2024-11-08] MEDS: ESCITALOPRAM OXALATE 10 MG TABLET PO (09:27)
[2024-11-08] MEDS: glipiZIDE 5 MG TABLET 10 MG BY MOUTH (09:27)
[2024-11-08] MEDS: buPROPion HCL XL (24 HR) 150 MG TABCR PO (09:27)
[2024-11-08] MEDS: lisinopriL 20 MG TABLET PO (09:27)
[2024-11-08] MEDS: INSULIN ASPART (*BKC) 100 UNITS/ML SUB-Q ×2 (09:33→12:25)
[2024-11-08 11:49] LABS: Glucose Point of Care 216 mg/dl (65-105)
== END 2024-11-08 13:09 | disposition home or self-care (01) ==
LOC: ANHED 11-06 06:02 → ANH3MEDSUR 11-06 07:12
PROVIDERS: Physician Assistant; Admitting Provider Internal Medicine; Emergency Provider Emergency Medicine; PCP Family Medicine; Visit Provider Internal Medicine
DX: N39.0 Urinary tract infection, site not specified (principal); B96.20 Unspecified Escherichia coli [E. coli] as the cause of diseases classified elsewhere; E11.65 Type 2 diabetes mellitus with hyperglycemia; B37.9 Candidiasis, unspecified; I10 Essential (primary) hypertension; F41.9 Anxiety disorder, unspecified; E78.49 Other hyperlipidemia; Z91.148 Patient's other noncompliance with medication regimen for other reason; Z79.85 Long-term (current) use of injectable non-insulin antidiabetic drugs; Z79.84 Long term (current) use of oral hypoglycemic drugs; Z79.899 Other long term (current) drug therapy
CPT/HCPCS: 36415; 36600; 74176; 80053; 81001; 81025; 82010; 82805; 82948; 83036; 83735; 84100; 85018; 85025; 87077; 87086; 87186; 96361; 96365; 96376; 99285; A9270; G0378; J0696; J1815; J7030

== ENCOUNTER 2025-03-12 07:58 | Outpatient (CLI) | payer OTHER, SELFPAY ==
--- OUTSIDE RECORDS SUMMARY | 2025-03-12 08:01 | XMS_ITS | Clinical Summary ---
Author Organization [facility] Address [address] [place] [address] Care Team Providers Care Drapery Rod Assembler Name Role Phone Unavailable Primary Care Provider Unavailabl e Source Comments [facility],non-owned Affiliates and Associated Physician Practices is amultiple site organization consisting of ambulatory clinics and hospital sitesin [place], [place], [place] and [place]. This disclosure is being madepursuant to the Care Everywhere program and may not contain all information available regarding this patient. Last updated 18.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
--- OUTSIDE RECORDS SUMMARY | 2025-03-12 08:01 | XMS_ITS | Data Portability ---
Author Organization [facility], [place] Address [address] [place] [address] Assessment Encounter Date Assessment Date Assessment LastModified by Organization Details LastModified Time 01/09/2022 01/09/2022 Annual gynecological exam performed. Patient will come back in a year unless there are new symptoms. [email or web address] Not available 01/09/2022 11:14:43 Plan of Treatment Reminders Order Date Submit Date Provider Last Modified By Organization Details Last Modified Time Details Appointments None recorded. Lab None recorded. Referral gastroenter ologist referral - Referring this patient for a Screening Colonoscopy Please contact this patient to schedule an appointment Attached to this referral are the patients demographic s and most recent office visit notes. If you have any questions or require further information , please contact me at [phone]. Thank you, Ruby, Referral's 2021 [facility], [address], [address], [place], [address], 3 05:01:34 Procedures None recorded. Surgeries None recorded. Imaging MAMMO, screening, bilateral 2021 [facility], [address], [address], [place], [address], 2 09:58:50 Medication Orders clobetasol 0.05 % topical cream [facility] [id number] [facility], [address], [place], [address], 2 11:23:34 Patient TargetsNo targets recorded. Patient InstructionsNo instructions recorded. Reason for Referral Set Painter Referral for Screening for malignant neoplasm of colon Referring this patient for a Screening ColonoscopyPlease contact this patient to schedule an appointmentAttached to this referral are the patients demographics and most recent office visit notes.If you have any questions or require further information, please contact me at [phone].Thank you,Ruby, Referral's Referring Physician: Jennifer Velásquez, HERBOLOGIST, Encounter Date: 01/09/2022 Results Created Date Observation [...] colleen: Nathan Reid Colle cted: 01/11 0807 [employer] Order ing Locat ion: [place] [facility] [...] Linda leslie or Peter ugalde (NIL) . Bhavna hung gisella d by Ana Maria Elam [...] is recom canelo d, as clini kyle garcia nted. Not Available [facility] (Lab) [address], [place], [address], 01/15/2022 17:25:49 04/12/20 22 04/09/2022 MAMMO , scree roni, bilat eral No observ ation record ed. MARIA DEL CARMEN [facility] [address], [place], [address], 04/16/2022 13:57:33 Result Notes None recorded. Procedures Surgical History Date Name Laterality Status Provider Name and Address Organization Details Recorded Time Date of Last Pap Smear completed [facility] 01/09/2022 11:16:39 7 section completed [facility] 01/09/2022 12:03:23 3 section completed [facility] 01/09/2022 12:03:12 2 section completed [facility] 01/09/2022 12:03:06 Imaging Results None recorded. Procedure Notes None recorded. Medical Equipment None [...] Available No t Available Vitals Date Recorded Systolic And Diastolic Provider Name and Address Organization Details Last Updated DateTime 01/09/2022 122/80 mm[Hg] Jennifer Velásquez NATHAN- [address], [place], [address], [facility] 01/09/2022 11:27:37 Date Recorded Body height Body mass index (BMI) Body weight Provider Name and Address Organization Details Last Updated DateTime 01/09/2022 165.1 cm 35.8 kg/m2 40903.36 g Carolyn Dozier [facility] 01/09/2022 11:16:04 Social History Question Answer Notes LastModified by Organizat ion Details LastModified Time Tobacco Smoking Status Never Smoker Carolyn Dozier null, [facility] 01/09/2022 12:02:35 Are You Blind Or Do You Have Difficulty Seeing? No Information n ot available 01/09/2022 What Is Your Level Of Caffeine Consumption? Heavy [email or web address] Information not available 01/09/2022 In The 14 Days Before Symptom Onset, Have You Had Close Contact With A Laboratory-confirm ed COVID-19 While That Case Was Ill? No [email or web address] Information n ot available 01/09/2022 In The 14 Days Before Symptom Onset, Have You Had Close Contact With A Person Who Is Under Investigation For COVID-19 While That Person Was Ill? No [email or web address] Information not available 01/09/2022 Have You Been To An Area Known To Be High Risk For COVID-19? No [email or web address] Information not available 01/09/2022 Are You Deaf Or Do You Have Serious Difficulty Hearing? No [email or web address] Information not available 01/09/2022 What Type Of Diet Are You Following? DIABETIC [email or web address] Information n ot available 01/09/2022 Have You Ever Been Counseled For Unhealthy Alcohol Use? No [email or web address] Information not available 01/09/2022 Do You Use Your Seat Belt Or Car Seat Routinely? Yes Information not available 01/09/2022 Do You Have Smoke And Carbon Monoxide Detectors In Your Home? Yes [email or web address] Information not available 01/09/2022 Do You Use Sunscreen Routinely? Yes [email or web address] Information not available 01/09/2022 Has Tobacco Cessation Counseling Been Provided? No [email or web address] Information not available 01/09/2022 Do You Have Difficulty Walking Or Climbing Stairs? No [email or web address] Information not available 01/09/2022 Sex: Unknown Functional Status Question Answer Note LastModified by Organizat ion Details LastModified Time Do you use any illicit or recreational drugs? No [email or web address] Information not available 01/09/2022 Do you or have you ever used any other forms of tobacco or nicotine? No [email or web address] Information not available 01/09/2022 What is your level of alcohol consumption? Occasional [email or web address] Information not available 01/09/2022 Are you able to walk? YESWOREST [email or web address] Information not available 01/09/2022 Are you able to care for yourself? Yes Information n ot available 01/09/2022 Do you have difficulty dressing or bathing? No [email or web address] Information not available 01/09/2022 What is your exercise level? Occasional [email or web address] Information not available 01/09/2022 Mental Status Question Answer Note LastModified by Organization D etails LastModified Time Do you feel stressed (tense, restless, nervous, or anxious, or unable to sleep at night)? [id number] [email or web address] Information not available 01/09/2022 Family History Relationship Description Onset Age of this Age Resolved Age Notes LastModified by Organization Details LastModified Time Father Heart disease [email or web address] Not available 01/09 11:52:56 Father Diabetes mellitus [email or web address] Not available 01/09 11:53:53 Father Hypercholest erolemia Not available 01/09 12:01:11 Father Hypertensive disorder [email or web address] Not available 01/09 12:01:59 Paternal Grandfather Heart disease Not available 01/09 11:52:56 Paternal Grandfather Hypercholest erolemia [email or web address] Not available 01/09 12:01:11 Paternal Grandfather Hypertensive disorder Not available 01/09 12:01:59 Paternal Aunt Heart disease [email or web address] Not available 01/09 11:52:56 Paternal Aunt Diabetes mellitus [email or web address] Not available 01/09 11:53:53 Paternal Aunt Hypercholest erolemia [email or web address] Not available 01/09 12:01:11 Paternal Aunt Hypertensive disorder Not available 01/09 12:01:59 Paternal Uncle Heart disease [email or web address] Not available 01/09 11:52:56 Paternal Uncle Diabetes mellitus [email or web address] Not available 01/09 11:53:53 Paternal Uncle Hypercholest erolemia Not available 01/09 12:01:11 Paternal Uncle Hypertensive disorder [email or web address] Not available 01/09 12:01:59 Mother Diabetes mellitus [email or web address] Not available 01/09 11:53:53 Maternal Grandmother Diabetes mellitus [email or web address] Not available 01/09 11:53:53 Sister Diabetes mellitus [email or web address] Not available 01/09 11:53:53 Sister Hypertensive disorder [email or web address] Not available 01/09 12:01:59 Maternal Aunt Hypercholest erolemia [email or web address] Not available 01/09 12:01:11 Maternal Aunt Hypertensive disorder [email or web address] Not available 01/09 12:01:59 Maternal Uncle Hypercholest erolemia Not available 01/09 12:01:11 Maternal Uncle Hypertensive disorder [email or web address] Not available 01/09 12:01:59 Medical History Condition Response Allergies (Food, seasonal, environmental ) N Other Y Breast Cancer N Drug/Latex Allergies/Reactions N Blood Transfusion N Dermatologic Disorders N Lung Disease N Defects or Inherited Disease N Breast Problem N Gestational Diabetes N Hematologic disorders N Anesthesia Complications N History of STI N Deep Vein Thrombosis N Polycystic ovary syndrome N Anxiety Disorder N Autoimmune disease N Arthritis N Infertility N Polyps N Acid Reflux (GERD) N History of abnormal pap N Cancer N Stroke N Varicosities N Neurologic/Epilepsy N Endometriosis N High Cholesterol Y Headaches N Fibromyalgia N Kidney Disease N Heart Problems N Kidney or Bladder Problems N Thyroid Problems N GI Problems N Eating Disorder [...] SNOMED-CT Code Diagnosis ICD10 Code Diagnosis Note [id number] Jennifer Velásquez , [facility] [address] [address] 01/09/2022 10:44:59 01/09/2022 11:28:53 Gynecologic examination [id number] Z01.419 Take Calcium with Vitamin D 12-1500mg daily. Do monthly self breast exams. It is advised to get annual flu shot in the fall and she could obtain at [facility] or [facility] care clinic. If you haven't received the [...] Dexa Screen Routine Labs Screening mammography 24 839152 Z12.31 Screening for malignant neoplasm of colon [id number] Z12.11 Contact de rmatitis caused by urushiol from [employer] [id number] L25.5 F/U if sx's persist Health Concerns Section Related Observation LastModified by Organization Detai ls LastModified Time None Recorded Concern Status LastModified by Organization Details LastModified Time None Recorded Advance Directives Directive None Recorded Payers Insurance Date Sequence Insurance Name Policy Number Policy Parry Covered Member ID Parry Member ID Guarantor Name 01/09/2022 Chintan VOGEL [id number] Arabella Agrawal [id number] Arabella Agrawal Notes Date Note Type Note Provider Name and Address Organization Details Recorded Time 01/09/2022 text/html Annual Redrawer Post-MenopausalRe ported bypatient.[place] rivka Symptoms:no menopausal symptoms; [...] schedule colonoscopy NIALL Rooney- [address], [place], [address], [facility] 01/09/2022 11:27:43 OBGyn Episode Ob Episode Information Episode Created Date Number of Fetuses Patient Bloodtype Patient rh Status Prepregnancy Weight lbs Domestic Partner Domestic Partner Phone Father Name Game Show Host Status 01/10/20 22 2 CLOSED Fetus Data First Name Last Name Admitted to NICU Weight (g) Sex Living Outcome Pediatric Complications Fetus ID Race Codes Race Delivery Type 737.087 M Prematur e 32454 Primary 595.112 704 M Prematur e 78104 Primary Jamir Calculation Initial Jamir Date Initial [...] Domestic Partner Domestic Partner Phone Father Name Game Show Host Status 01/10/20 22 1 CLOSED Fetus Data First Name Last Name Admitted to NICU Weight (g) Sex Living Outcome Pediatric Complications Fetus ID Race Codes Race Delivery Type 2806.37 3704 F Prematur e 51281 Repeat Jamir Calculation Initial Jamir Date Initial [...] Domestic Partner Domestic Partner Phone Father Name Game Show Host Status 01/10/20 22 1 CLOSED Fetus Data First Name Last Name Admitted to NICU Weight (g) Sex Living Outcome Pediatric Complications Fetus ID Race Codes Race Delivery Type 2551.45 5 F Prematur e 49370 Repeat Jamir Calculation Initial Jamir Date Initial [...]
--- OUTSIDE RECORDS SUMMARY | 2025-03-12 08:01 | XMS_ITS | Clinical Summary ---
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[employer] Gender Identity Not on file Sexual Orientation Not on file Plan of Treatment Health Maintenance Due Date Last Done Comments Hepatitis C Virus (HCV) Screening 1968 TdaP Immunization 1968 Hepatitis B Immunization (1 of 3 - 19+ 3-dose series) 1987 Pap Smear 1989 Cervical Cancer Screening (CCS) 1998 HPV/Cotest 1998 Cologuard 2013 Colonoscopy 2013 Colorectal Cancer Screening 2013 Immunochemical Fecal Occult Blood 2013 Pneumococcal Immunization (5 0+ years) (1 of 1 - PCV) 2018 Zoster Immunization (1 of 2) 2018 SARS-COV-2 Immunization (4 - season) 2024 07/07/2021, 11/01/2020, 10/03/2020 Influenza Immunization (#1) 2025 05/26/2021 Respiratory Syncytial Virus (RSV) Immunization (Adult) (1 - 1-dose 75+ series) 2043 Human Papillomavirus (HPV) Immunization Aged Out No longer eligible b ased on patient's age to complete this topic Meningococcal Immunization (ACWY) Aged Out No longer eligible b ased on patient's age to complete this topic Rotavirus Immunization Aged Out No lo nger eligible based on patient's age to complete this topic
[2025-03-12 19:03] LABS: Hematocrit 41.7 % (37.0-47.0); Hemoglobin 13.6 g/dL (12.0-15.0); Immature Granulocyte Percent A 0.2 % (0-0.5); Lymphocytes Absolute Auto 2.50 K/mm3 (0.9-3.2); Mean Corpuscular HGB Conc 32.6 g/dl (32-36); Mean Corpuscular Hemoglobin 32.5 pg (26-34); Mean Corpuscular Volume 99.8 fl (80-100); Nucleated Red Blood Cells Absolute Auto 0.000 K/mm3 (0.0-0.012); Nucleated Red Blood Cells Perc 0.0 % (0.0-0.2); Platelet Count Result 241 k/mm3 (150-375); Red Blood Count 4.18 M/mm3 (4.2-5.4); White Blood Count 6.0 K/mm3 (4.5-10.0)
[2025-03-12 19:21] LABS: Alanine Aminotransferase 25 U/L (6-35); Albumin Level 4.5 g/dL (3.5-5.1); Alkaline Phosphatase 78 U/L (38-126); Anion Gap 9 mmol/L (4-12); Aspartate Amino Transferase 51 U/L (14-36); Bilirubin,Total 0.5 mg/dL (0.2-1.3); Blood Urea Nitrogen 14 mg/dL (7-17); Calcium 9.7 mg/dL (8.4-10.2); Carbon Dioxide 24 mmol/L (22-30); Chloride 103 mmol/L (98-107); Cholesterol 216 mg/dL (0-200); Estimated Glomerular Filt Rate > 60; Glucose 116 mg/dL (65-110); HDL Direct 46 mg/dL; Potassium 4.3 mmol/L (3.4-5.0); Sodium 136 mmol/L (137-145); Total Protein 7.5 g/dL (6.3-8.2); Triglycerides 194 mg/dL (<150)
[2025-03-12 19:52] LABS: MALB Creatinine Ratio 38.4 mg/g (0-30)
[2025-03-12 19:53] LABS: Thyroid Stimulating Hormone Reflex 0.888 uIU/mL (0.465-4.68)
[2025-03-12 20:15] LABS: Vitamin B12 220.0 pg/mL (239-931)
[2025-03-12 20:38] LABS: Hemoglobin A1C 6.7 % (<5.7)
== END 2025-03-12 07:59 | disposition home or self-care (01) ==
LOC: ANHGOSHLAB 07:59
PROVIDERS: PCP Family Medicine; Visit Provider Family Medicine
DX: E78.5 Hyperlipidemia, unspecified (principal); I10 Essential (primary) hypertension; E11.9 Type 2 diabetes mellitus without complications; Z00.00 Encounter for general adult medical examination without abnormal findings; F33.0 Major depressive disorder, recurrent, mild; E53.8 Deficiency of other specified B group vitamins; E55.9 Vitamin D deficiency, unspecified
CPT/HCPCS: 36415; 80053; 80061; 82043; 82306; 82607; 83036; 84443; 85025